=== PATIENT | male | born 1935 | race Hispanic/Latino ===

== ENCOUNTER 2017-09-20 10:14 | Outpatient (CLI) | payer MEDICARE, OTHER ==
--- NOTE | 2017-09-20 11:48 | SJPRAD ---
PA AND LATERAL CHEST: Date: 09/20/17 HISTORY: Cough x1 month. FINDINGS: Heart size within normal limits. There are atherosclerotic changes of the aorta. There are some chron ic appearing lung changes seen. Slightly more prominent interstitial change in the left base. I canno t totally exclude the possibility of some minimal early infiltrate in this region. IMPRESSION: Slightly increased retrocardiac parenchymal change. I suspect this is on the basis of chronic change, but some minimal early infiltrate is not excluded in the retrocardiac region. POS: LEONCIO
== END 2017-09-20 10:15 | disposition home or self-care (01) ==
LOC: MWLC RAD 10:14
PROVIDERS: ATTEND Family Medicine
DX: J41.1 Mucopurulent chronic bronchitis (principal); M05.79 Rheumatoid arthritis with rheumatoid factor of multiple sites without organ or systems involvement

== ENCOUNTER 2017-10-29 12:44 | Outpatient (CLI) | payer MEDICARE, OTHER ==
--- NOTE | 2017-10-29 14:35 | RAD ---
TWO VIEWS CHEST: Date: 10-29-17 Comparison: 09-20-17 History: Dyspnea. FINDINGS: Multilevel degenerative change noted within the thoracic spine. There is increased linear interstitia l density in the perihilar regions in both lung bases, stable. There is no pneumothorax or pleural fl uid and no focal consolidation or alveolar edema. Coronary arterial calcification and/or stent materi al overlies the cardiac silhouette on the left, stable. IMPRESSION: Stable appearance of the chest as above. POS: LEONCIO
== END 2017-10-29 12:45 | disposition home or self-care (01) ==
LOC: RAD 12:44
PROVIDERS: ATTEND Internal Medicine
DX: R06.00 Dyspnea, unspecified (principal); M05.79 Rheumatoid arthritis with rheumatoid factor of multiple sites without organ or systems involvement
CPT/HCPCS: 71046

== ENCOUNTER 2017-11-26 13:41 | Outpatient (CLI) | payer MEDICARE, OTHER ==
--- NOTE | 2017-11-28 10:38 | PFT ---
PATIENT HISTORY: HEIGHT: 73 WEIGHT:161 SMOKER: NO QUIT 10 YRS AGO HOW LON YEARS PACKS PER DAY:1 PRODUCTIVE COUGH: LUNG DISEASE: PHYSICIAN INTERPRETATION FINAL REPORT: Fish Icer comments: patient had good effort, The DLCO data did not save and was written by hand. FVC 2.57 (62%), FEV1 1.70 (64%), FEV1/FVC 0.66. TLC 4.67 (68%), FRC 3.07 (78%), RV 2.00 (74%). Diffusion 24.62 (105%). There is a reduction in the FEV1 and the FVC. It has an obstructive profile, based on the FEV1 to FVC ratio. There is no significant improvement after administration of bronchodilator. If anything, things get a little worse. The total lung capacity and residual volume are both mildly impaired. Diffusion capacity is normal. 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 Gas exchange is preserved. No priors for comparison. Fish Icer: RYANN Community Relations Coordinator: RYANN MORENO
== END 2017-11-26 13:42 | disposition home or self-care (01) ==
LOC: CP 13:41
PROVIDERS: ATTEND Internal Medicine
DX: J44.9 Chronic obstructive pulmonary disease, unspecified (principal); J84.9 Interstitial pulmonary disease, unspecified
CPT/HCPCS: 94060; 94727; 94729

== ENCOUNTER 2018-03-07 08:57 | Outpatient (CLI) | payer MEDICARE, OTHER | END 2018-03-07 08:58 | disposition home or self-care (01) | LOC: BICRAD 08:57 | PROVIDERS: ATTEND Internal Medicine Rheumatology | DX: M17.0 Bilateral primary osteoarthritis of knee (principal); M05.79 Rheumatoid arthritis with rheumatoid factor of multiple sites without organ or systems involvement ==

== ENCOUNTER 2018-05-07 14:57 | Outpatient (CLI) | payer MEDICARE, OTHER | END 2018-05-07 14:58 | disposition home or self-care (01) | LOC: BICRAD 14:57 | PROVIDERS: ATTEND Internal Medicine Rheumatology | DX: M05.79 Rheumatoid arthritis with rheumatoid factor of multiple sites without organ or systems involvement (principal); R76.12 Nonspecific reaction to cell mediated immunity measurement of gamma interferon antigen response without active tuberculosis | CPT/HCPCS: 71046 ==

== ENCOUNTER 2018-08-12 12:31 | Outpatient (CLI) | payer MEDICARE, OTHER ==
--- NOTE | 2018-08-14 16:57 | PFT ---
PATIENT HISTORY: HEIGHT: 72 IN WEIGHT: 161 SMOKER: NO HOW LON YRS PACKS PER DAY: 1 PRODUCTIVE COUGH: LUNG DISEASE: PHYSICIAN INTERPRETATION FINAL REPORT: FEV1 is 1.85 liters prior to bronchodilators. After bronchodilators 2.16 liters best FVC is 3.02. Mid flows are reduced and improves with bronchodilators. Total lung capacity is normal RV/TLC ratio is normal. Diffusion is mildly reduced, but corrects for lung volumes. IMPRESSION: Overall, this is a moderate obstructive defect that improves with bronchodilators. Supervising Editor Trailer: Brickmason Helper: RYANN MORENO
== END 2018-08-12 12:32 | disposition home or self-care (01) ==
LOC: CP 12:31
PROVIDERS: ATTEND Internal Medicine
DX: J84.9 Interstitial pulmonary disease, unspecified (principal); J44.9 Chronic obstructive pulmonary disease, unspecified; M05.79 Rheumatoid arthritis with rheumatoid factor of multiple sites without organ or systems involvement
CPT/HCPCS: 36415; 80053; 85025; 85652; 86140; 94060; 94727; 94729

== ENCOUNTER 2019-03-17 11:34 | Outpatient (CLI) | payer MEDICARE, OTHER ==
--- NOTE | 2019-03-17 11:46 | SJPRAD ---
CHEST PA LAT ROUTINE HISTORY: Cough COMPARISON: 09/20/2017 FINDINGS: The heart size is normal. The lungs are well expanded without focal areas of consolidation, pneumothorax or pleural effusions. Mild chronic changes are again seen. There are degenerative changes in the spine. The aorta is tortuous. IMPRESSION: No radiographic evidence of acute cardiopulmonary process.
== END 2019-03-17 11:35 | disposition home or self-care (01) ==
LOC: MWLC RAD 11:34
PROVIDERS: ATTEND Family Medicine
DX: R05 Cough (principal)

== ENCOUNTER 2019-03-25 10:20 | Outpatient (CLI) | payer MEDICARE, OTHER ==
--- NOTE | 2019-03-25 10:31 | SJPRAD ---
CHEST PA LAT ROUTINE HISTORY: Cough and congestion COMPARISON: 03/17/2019 study. FINDINGS: Heart size is borderline in size. The aorta is tortuous. There are chronic lung changes see n. There is been development of bibasilar lung changes slightly more confluent in the right base but still most likely atelectasis. IMPRESSION: Borderline heart size with bibasilar atelectasis.
== END 2019-03-25 10:21 | disposition home or self-care (01) ==
LOC: MWLC RAD 10:20
PROVIDERS: ATTEND Family Medicine
DX: R05 Cough (principal); J98.11 Atelectasis

== ENCOUNTER 2019-06-05 09:21 | Outpatient (CLI) | payer MEDICARE, OTHER ==
--- NOTE | 2019-06-05 11:20 | RAD ---
PA AND LATERAL CHEST: Date: 06/05/19 INDICATION: Nonspecific reaction to gamma interferon. COMPARISON: Prior exam dated 03/25/19. FINDINGS: Chronic lung changes and mild cardiomegaly are stable. No pleural effusion or pneumothorax is evident . No acute osseous abnormality is evident. IMPRESSION: No acute cardiopulmonary abnormality. POS: OFF
--- NOTE | 2019-06-05 11:38 | BD ---
DEXA BONE DENSITY STUDY: Date: 06/05/19 HISTORY: Postmenopausal. FINDINGS: Lumbar Spine: BMD (g/cm2) L1 1.072 T-Score: +0.0 L2 1.080 T-Score: -0.1 L3 1.193 T-Score: +0.8 L4 1.197 T-Score: +1.0 Total 1.138 T-Score: +0.4 Right Femoral Neck: 0.760 T-Score: -1.3 Total Femur: 0.792 T-Score: -1.6 IMPRESSION: 1. Osteopenia of the right hip. 2. Normal bone mineral density of the lumbar spine. 3. 10 year fracture risk for major osteoporotic fracture is 7.8% and for hip fracture is 2.6%. These fracture probabilities are calculated for an untreated patient. POS: TPC
== END 2019-06-05 09:22 | disposition home or self-care (01) ==
LOC: BICRAD 09:21
PROVIDERS: ATTEND Internal Medicine Rheumatology
DX: M81.0 Age-related osteoporosis without current pathological fracture (principal); R76.12 Nonspecific reaction to cell mediated immunity measurement of gamma interferon antigen response without active tuberculosis; M05.79 Rheumatoid arthritis with rheumatoid factor of multiple sites without organ or systems involvement; M85.89 Other specified disorders of bone density and structure, multiple sites
CPT/HCPCS: 71046; 77080

== ENCOUNTER 2019-07-08 09:49 | Outpatient (CLI) | payer MEDICARE, OTHER ==
--- NOTE | 2019-07-08 11:19 | ULT ---
ABDOMINAL AORTIC ULTRASOUND: HISTORY: Abdominal aortic aneurysm screening. TECHNIQUE: Real-time imaging of the abdominal aorta was performed. FINDINGS: The proximal aorta measured 2.1 cm. The mid aorta measured 1.8 cm and distally 1.6 cm. The iliac anay xu do not appear dilated. IMPRESSION: No evidence of aortic aneurysm. POS: TPC
== END 2019-07-08 09:50 | disposition home or self-care (01) ==
LOC: BICULT 09:49
PROVIDERS: ATTEND Family Medicine
DX: Z13.6 Encounter for screening for cardiovascular disorders (principal)
CPT/HCPCS: 76775

== ENCOUNTER 2019-12-07 11:48 | Outpatient (CLI) | payer MEDICARE, OTHER ==
--- NOTE | 2019-12-07 12:15 | RAD ---
XR Chest Pa Lat @ POB HISTORY: Dyspnea COMPARISON: 06/05/2019 FINDINGS: Chronic changes and mild cardiomegaly are again seen. The aorta is tortuous.. The lungs are well expanded without focal areas of consolidation, pneumothorax or pleural effusions. There are degenerative changes in the spine. IMPRESSION: No radiographic evidence of acute cardiopulmonary process.
== END 2019-12-07 11:49 | disposition home or self-care (01) ==
LOC: RAD 11:48
PROVIDERS: ATTEND Internal Medicine
DX: R06.00 Dyspnea, unspecified (principal)
CPT/HCPCS: 71046

== ENCOUNTER 2020-04-18 10:26 | Outpatient (CLI) | payer MEDICARE, OTHER ==
--- NOTE | 2020-04-18 13:17 | CT ---
LOW DOSE CT SCAN OF CHEST WITHOUT IV CONTRAST FOR LUNG CANCER SCREENING: Date: 04/18/2020 HISTORY: Patient smoked a pack a day for 65 years and quit 13 years ago. Cigarette nicotine dependence in elisabeth ssion. COMPARISON: None. FINDINGS: There are multiple scattered solid well-circumscribed lung nodules in the lung parenchyma bilaterally measuring up to 6.0 mm. Subpleural interstitial thickening is seen in the lung bases with mild atele ctatic changes. No pleural or pericardial effusions are seen. There are coronary artery calcifications. No aneurysmal dilatation of the thoracic aorta is seen. Upper abdominal tomograms demonstrate changes of cholecyst ectomy and intrabiliary air. IMPRESSION: Lung-RADS 3. RECOMMENDATION: Six month follow-up LDCT of chest is recommended. POS: LEONCIO
== END 2020-04-18 10:27 | disposition home or self-care (01) ==
LOC: BICCT 10:26
PROVIDERS: ATTEND Family Medicine
DX: Z12.2 Encounter for screening for malignant neoplasm of respiratory organs (principal); Z87.891 Personal history of nicotine dependence
CPT/HCPCS: G0297

== ENCOUNTER 2020-07-04 12:07 | Outpatient (CLI) | payer MEDICARE, OTHER ==
--- NOTE | 2020-07-04 12:49 | RAD ---
XR Chest Pa Lat STANDARD HISTORY: COPD COMPARISON: 12/07/2019 FINDINGS: Chronic changes in the myocardial megaly are again seen. The aorta is tortuous. The lungs a re well expanded without focal areas of consolidation, pneumothorax or pleural effusions. There are degenerative changes in the spine. IMPRESSION: No radiographic evidence of acute cardiopulmonary process.
== END 2020-07-04 12:08 | disposition home or self-care (01) ==
LOC: BICRAD 12:07
PROVIDERS: ATTEND Family Medicine
DX: J44.9 Chronic obstructive pulmonary disease, unspecified (principal)
CPT/HCPCS: 71046

== ENCOUNTER 2020-12-01 09:18 | Outpatient (CLI) | payer MEDICARE, OTHER | END 2020-12-01 09:19 | disposition home or self-care (01) | LOC: BICCT 09:18 | PROVIDERS: ATTEND Family Medicine | DX: Z12.2 Encounter for screening for malignant neoplasm of respiratory organs (principal); F17.210 Nicotine dependence, cigarettes, uncomplicated; M54.2 Cervicalgia; M25.511 Pain in right shoulder; M19.012 Primary osteoarthritis, left shoulder; M50.80 Other cervical disc disorders, unspecified cervical region; R91.8 Other nonspecific abnormal finding of lung field | CPT/HCPCS: 71271; 72040; 73030; 80053; 80061; 82306; 85025; G0103; 36415 ==

== ENCOUNTER 2020-12-16 10:04 | Outpatient (CLI) | payer MEDICARE, OTHER | END 2020-12-16 10:05 | disposition home or self-care (01) | LOC: TBSIIMAG 10:04 | PROVIDERS: ATTEND Family Medicine | DX: M79.2 Neuralgia and neuritis, unspecified (principal); M48.02 Spinal stenosis, cervical region; M47.812 Spondylosis without myelopathy or radiculopathy, cervical region | CPT/HCPCS: 72141 ==

== ENCOUNTER 2021-04-10 12:19 | Outpatient (CLI) | payer MEDICARE, OTHER, MEDICAID | END 2021-04-10 12:20 | disposition home or self-care (01) | LOC: BICULT 12:19 | PROVIDERS: ATTEND Family Medicine | DX: E05.00 Thyrotoxicosis with diffuse goiter without thyrotoxic crisis or storm (principal) | CPT/HCPCS: 76536 ==

== ENCOUNTER 2021-06-11 17:36 | Emergency (ER) | payer MEDICARE, OTHER, MEDICAID ==
[2021-06-11] MEDS ORDERED: HYDROcodone/Acetaminophen 5/325 mg Tablet ONE (20:51)
[2021-06-11] MEDS ORDERED: Ibuprofen 800 MG TAB ONE (20:58)
== END 2021-06-11 21:18 | disposition home or self-care (01) ==
LOC: ERS 17:36
DX: S83.92XA Sprain of unspecified site of left knee, initial encounter (principal); W22.8XXA Striking against or struck by other objects, initial encounter; M17.0 Bilateral primary osteoarthritis of knee; E78.5 Hyperlipidemia, unspecified; I10 Essential (primary) hypertension
CPT/HCPCS: 72170

== ENCOUNTER 2021-07-13 15:02 | Outpatient (CLI) | payer MEDICARE, MEDICAID | END 2021-07-13 15:03 | disposition home or self-care (01) | LOC: BICMAMMO 15:02 | PROVIDERS: ATTEND Internal Medicine Rheumatology | DX: M81.0 Age-related osteoporosis without current pathological fracture (principal); M85.851 Other specified disorders of bone density and structure, right thigh; M85.852 Other specified disorders of bone density and structure, left thigh | CPT/HCPCS: 77080 ==

== ENCOUNTER 2021-08-09 11:29 | Outpatient (CLI) | payer MEDICARE, OTHER, MEDICAID | END 2021-08-09 11:30 | disposition home or self-care (01) | LOC: BICRAD 11:29 | PROVIDERS: ATTEND Internal Medicine Rheumatology | DX: R76.12 Nonspecific reaction to cell mediated immunity measurement of gamma interferon antigen response without active tuberculosis (principal); R91.8 Other nonspecific abnormal finding of lung field | CPT/HCPCS: 71046 ==

== ENCOUNTER 2021-11-21 09:23 | Inpatient (IN) | payer MEDICARE, MEDICAID, OTHER ==
[2021-11-21 10:21] LABS: #Lymphocytes 1.2 thou/uL (1.20-3.40); #Monocytes 0.9 thou/uL (0.11-0.59); #Neutrophils 15.6 thou/uL (1.40-6.50); %Basophils 0.1 % (0.0-1.0); %Eosinophils 0.2 % (0.0-10.0); %Lymphocytes 6.8 % (21.0-51.0); %Monocytes 4.8 % (0.0-10.0); Hemoglobin 14.2 g/dL (14.0-18.0); Mean Corpuscular HGB CONC 32.6 g/dL (32.0-36.0); Mean Corpuscular Hemoglobin 31.6 pg (27.0-31.0); Mean Platelet Volume 7.2 fL (7.4-10.4); Platelet Count 209 thou/uL (130-400); Red Blood Cell (RBC) Count 4.51 mill/uL (4.70-6.10); White Blood Cell (WBC) Count 17.7 thou/uL (4.8-10.8)
[2021-11-21 10:40] LABS: ALT (SGPT) 37 U/L (8-55); AST (SGOT) 79 U/L (5-34); Albumin 3.6 g/dL (3.4-4.8); Alkaline Phosphatase 75 U/L (40-110); Anion Gap 14 mmol/L (10-20); BUN (Urea Nitrogen) 33 mg/dL (8.4-25.7); Bilirubin, Total 2.8 mg/dL (0.2-1.2); Calc. Creatinine Clearance 0 mL/min (70-130); Calcium 9.3 mg/dL (7.8-10.44); Carbon Dioxide 23 mmol/L (23-31); Chloride 108 mmol/L (98-107); Globulin 2.4 g/dL (2.4-3.5); Glucose 111 mg/dL (83-110); Potassium 3.4 mmol/L (3.5-5.1); Sodium 142 mmol/L (136-145)
[2021-11-21] MEDS ORDERED: Aspirin Chewable 81 MG TAB ONE (11:35)
[2021-11-21 11:58] LABS: CKMB 29.1 ng/mL (0-6.6)
[2021-11-21 12:35] LABS: Bacteria/HPF None Seen HPF (None Seen); Bilirubin Negative (Negative); Blood, Urine 3+ (Negative); Clarity Clear (Clear); Glucose, Urine (Dipstick) Normal (Negative); Ketone, Urine Negative (Negative); Leukocyte Negative Leu/uL (Negative); Nitrite Negative (Negative); Protein, Urine (Dipstick) 50 mg/dL (Neg-Trace); RBC/HPF 0-3 HPF (0-3); Specific Gravity, Urine 1.029 (1.002-1.036); Squamous Epithelial 0-3 HPF (0-3); Urobilinogen 6 mg/dL (Less than 2); WBC/HPF 0-3 HPF (0-3); pH, Urine 6.5 (5.0-9.0)
[2021-11-21] MEDS ORDERED: Nitroglycerin 0.4 MG TAB (25 Tab Bottle) SL PRN (13:09)
[2021-11-21] MEDS ORDERED: Acetaminophen 325 MG TAB PO PRN (13:14)
[2021-11-21] MEDS ORDERED: Ondansetron ODT 4 MG TAB PO PRN (13:14)
[2021-11-21] MEDS ORDERED: Potassium Chloride 20 MEQ TAB PO SCH (13:30)
[2021-11-21] MEDS ORDERED: Potassium Chloride 20 MEQ TAB ONE (14:01)
[2021-11-21 15:34] LABS: Troponin I 0.037 ng/mL (< 0.028)
[2021-11-21 15:40] LABS: Magnesium 1.8 mg/dL (1.6-2.6)
[2021-11-21] MEDS ORDERED: Magnesium 2 GM/50 ML(in water) 2 GM in Premix Bag 1 BAG IVPB SCH (16:45)
[2021-11-21 17:34] LABS: SARS-CoV-2 NAA Rapid Test Not Detected (NotDetected)
[2021-11-21 18:07] LABS: Troponin I 0.034 ng/mL (< 0.028)
[2021-11-21 18:26] VITALS: BMI 22.1
[2021-11-22 04:48] LABS: #Eosinphils 0.1 thou/uL (0.0-0.7); #Lymphocytes 1.4 thou/uL (1.20-3.40); #Monocytes 0.6 thou/uL (0.11-0.59); #Neutrophils 6.1 thou/uL (1.40-6.50); %Basophils 0.5 % (0.0-1.0); %Eosinophils 0.9 % (0.0-10.0); %Lymphocytes 17.3 % (21.0-51.0); %Neutrophils 74.4 % (42.0-75.0); Hemoglobin 13.2 g/dL (14.0-18.0); Mean Corpuscular HGB CONC 33.2 g/dL (32.0-36.0); Mean Corpuscular Hemoglobin 32.5 pg (27.0-31.0); Mean Corpuscular Volume 97.9 fL (78.0-98.0); Mean Platelet Volume 6.8 fL (7.4-10.4); Platelet Count 182 thou/uL (130-400); RBC Distribution Width 13.1 % (11.5-14.5); Red Blood Cell (RBC) Count 4.05 mill/uL (4.70-6.10); White Blood Cell (WBC) Count 8.1 thou/uL (4.8-10.8)
[2021-11-22 05:12] LABS: Anion Gap 11 mmol/L (10-20); BUN (Urea Nitrogen) 29 mg/dL (8.4-25.7); Calc. Creatinine Clearance 87 mL/min (70-130); Calcium 8.4 mg/dL (7.8-10.44); Carbon Dioxide 24 mmol/L (23-31); Cardiac Risk 2.8 (Less than 4.5); Chloride 109 mmol/L (98-107); Cholesterol 112 mg/dl (< 200 Desired); Glucose 91 mg/dL (83-110); HDL Cholesterol 40 mg/dL (>60 Neg Risk); LDL Cholesterol, Calculated 60 mg/dL; Potassium 3.6 mmol/L (3.5-5.1); Sodium 140 mmol/L (136-145); Triglycerides 58 mg/dL (Less than 150)
[2021-11-22] MEDS ORDERED: Regadenoson 0.4 MG/5 ML SYRINGE ONE (12:09)
[2021-11-22] MEDS ORDERED: Non-Formulary Item 1 EACH (Risedronate Sodium [Risedronate Sodium] 35 MG Tablet) PO SCH (14:15)
[2021-11-22] MEDS ORDERED: BUPRENORPHINE 5 MCG TOP SCH (14:15)
[2021-11-22] MEDS: Ferrous Sulfate 325 MG TAB PO SCH ×2 (15:48→20:19)
[2021-11-22] MEDS ORDERED: Dronedarone HCl 400 MG TAB PO SCH (20:00)
[2021-11-22] MEDS: Donepezil HCl 5 MG TAB PO SCH (20:19)
[2021-11-22] MEDS: Rosuvastatin 20 MG TAB PO SCH (20:19)
[2021-11-22] MEDS: Enoxaparin Sodium 80 MG/0.8 ML SYRINGE SC SCH (20:19)
[2021-11-22] MEDS: traMADol HCl 50 MG TAB PO SCH (20:19)
[2021-11-22] MEDS ORDERED: Apixaban 5 MG TAB PO SCH (21:00)
[2021-11-23] MEDS ORDERED: BUPRENORPHINE 5 MCG TOP SCH (02:30)
[2021-11-23] MEDS: predniSONE 1 MG TAB PO SCH (09:30)
[2021-11-23] MEDS: Losartan 25 MG TAB PO SCH (09:30)
[2021-11-23] MEDS: Dronedarone HCl 400 MG TAB PO SCH ×2 (09:31→16:20)
[2021-11-23] MEDS: Ferrous Sulfate 325 MG TAB PO SCH ×3 (09:31→21:04)
[2021-11-23] MEDS: traMADol HCl 50 MG TAB PO SCH ×2 (09:31→21:04)
[2021-11-23] MEDS: Fish Oil 1,000 MG CAP PO SCH (09:31)
[2021-11-23] MEDS: Aspirin 81 mg Enteric Coated Tablet PO SCH (09:31)
[2021-11-23] MEDS: Enoxaparin Sodium 80 MG/0.8 ML SYRINGE SC SCH ×2 (09:32→21:04)
[2021-11-23] MEDS: Polyethylene Glycol OPTH DROP 15 ML BOT EA EYE SCH (09:34)
[2021-11-23] MEDS: Rosuvastatin 20 MG TAB PO SCH (21:04)
[2021-11-23] MEDS: Donepezil HCl 5 MG TAB PO SCH (21:04)
[2021-11-24] MEDS: traMADol HCl 50 MG TAB PO SCH (09:09)
[2021-11-24] MEDS: Ferrous Sulfate 325 MG TAB PO SCH (09:10)
[2021-11-24] MEDS: Losartan 25 MG TAB PO SCH (09:10)
[2021-11-24] MEDS: Aspirin 81 mg Enteric Coated Tablet PO SCH (09:10)
[2021-11-24] MEDS: Polyethylene Glycol OPTH DROP 15 ML BOT EA EYE SCH (09:10)
[2021-11-24] MEDS: Fish Oil 1,000 MG CAP PO SCH (09:10)
[2021-11-24] MEDS: predniSONE 1 MG TAB PO SCH (09:10)
[2021-11-24] MEDS: Dronedarone HCl 400 MG TAB PO SCH (09:20)
[2021-11-24] MEDS ORDERED: Apixaban 2.5 MG TAB PO SCH (10:00)
[2021-11-24] MEDS ORDERED: Apixaban 5 MG TAB PO SCH ×2 (10:15→21:00)
[2021-11-24 11:26] VITALS: BP 120/68; TEMP 97.9
[2021-11-25] MEDS ORDERED: Ergocalciferol 1.25 MG(50,000 UNITS) CAP PO SCH (09:00)
== END 2021-11-24 14:10 | disposition home or self-care (01) | DRG 310 ==
LOC: ERS 09:23 → ERHOLD 12:09 → 2NO 17:26 → OBSVTOIN 11-22 15:25
PROVIDERS: ADMIT Internal Medicine; ATTEND Internal Medicine
DX: I48.0 Paroxysmal atrial fibrillation (principal); R07.89 Other chest pain; Z20.822 Contact with and (suspected) exposure to COVID-19; R00.1 Bradycardia, unspecified; I12.9 Hypertensive chronic kidney disease with stage 1 through stage 4 chronic kidney disease, or unspecified chronic kidney disease; N18.30 Chronic kidney disease, stage 3 unspecified; M06.9 Rheumatoid arthritis, unspecified; I25.10 Atherosclerotic heart disease of native coronary artery without angina pectoris; E78.5 Hyperlipidemia, unspecified; K21.9 Gastro-esophageal reflux disease without esophagitis; G30.9 Alzheimer's disease, unspecified; F02.80 Dementia in other diseases classified elsewhere, unspecified severity, without behavioral disturbance, psychotic disturbance, mood disturbance, and anxiety; G83.11 Monoplegia of lower limb affecting right dominant side; E87.6 Hypokalemia; M25.521 Pain in right elbow; D72.829 Elevated white blood cell count, unspecified; I08.3 Combined rheumatic disorders of mitral, aortic and tricuspid valves; E78.00 Pure hypercholesterolemia, unspecified; K80.20 Calculus of gallbladder without cholecystitis without obstruction; B91 Sequelae of poliomyelitis; Z95.5 Presence of coronary angioplasty implant and graft; Z79.899 Other long term (current) drug therapy; Z79.82 Long term (current) use of aspirin; Z79.01 Long term (current) use of anticoagulants; Z79.52 Long term (current) use of systemic steroids; Z98.890 Other specified postprocedural states; Z91.81 History of falling
CPT/HCPCS: 36415; 70450; 71045; 72125; 78452; 80048; 80053; 80061; 81003; 81015; 82550; 82553; 83735; 83880; 84443; 84484; 85025; 93005; 93017; 93306; 94760; 96374; A9500; G0378; J1650; J2785; J3475; J7512; U0002

== ENCOUNTER 2022-05-27 15:00 | Inpatient (IN) | payer MEDICARE, MEDICAID ==
[2022-05-27 15:37] LABS: #Lymphocytes 1.5 thou/uL (1.20-3.40); #Monocytes 0.6 thou/uL (0.11-0.59); %Basophils 0.2 % (0.0-1.0); %Eosinophils 0.2 % (0.0-10.0); %Lymphocytes 18.7 % (21.0-51.0); %Monocytes 7.4 % (0.0-10.0); %Neutrophils 73.5 % (42.0-75.0); Hemoglobin 15.6 g/dL (14.0-18.0); Mean Corpuscular HGB CONC 33.4 g/dL (32.0-36.0); Mean Corpuscular Hemoglobin 31.1 pg (27.0-31.0); Mean Corpuscular Volume 93.2 fL (78.0-98.0); Mean Platelet Volume 7.6 fL (7.4-10.4); Platelet Count 144 thou/uL (130-400); RBC Distribution Width 14.4 % (11.5-14.5); Red Blood Cell (RBC) Count 5.01 mill/uL (4.70-6.10); White Blood Cell (WBC) Count 8.2 thou/uL (4.8-10.8)
[2022-05-27] MEDS ORDERED: Iopamidol-370 76% 500 ML 1 ML ONE (15:44)
[2022-05-27 15:49] LABS: Actual Bicarbonate (HCO3v) 22 mEq/L (22-28); Base Excess -2.4 mEq/L (-2.0 to +3.0); Calcium, Ionized (venous) 1.03 mmol/L (1.16-1.32); Chloride (VBG) 103 mmol/L (98-106); Hemoglobin (Hb) 14.9 g/dL (12.6-17.4); Potassium (VBG) 4.13 mmol/L (3.70-5.30); Sodium 134.3 mmol/L (133-146)
[2022-05-27] MEDS ORDERED: Acetaminophen 650 MG Suppository ONE (15:55)
[2022-05-27] MEDS ORDERED: Cefepime 2 GM VIAL ONE (15:57)
[2022-05-27 16:00] LABS: ALT (SGPT) 434 U/L (8-55); AST (SGOT) 903 U/L (5-34); Albumin 4.3 g/dL (3.4-4.8); Alkaline Phosphatase 375 U/L (40-110); Anion Gap 16 mmol/L (10-20); BUN (Urea Nitrogen) 32 mg/dL (8.4-25.7); Bilirubin, Total 2.2 mg/dL (0.2-1.2); Calc. Creatinine Clearance 0 mL/min (70-130); Calcium 9.4 mg/dL (7.8-10.44); Carbon Dioxide 24 mmol/L (23-31); Chloride 100 mmol/L (98-107); Estimated GFR 75; Globulin 3.1 g/dL (2.4-3.5); Glucose 87 mg/dL (83-110); Lipase 24 U/L (8-78); Potassium 4.2 mmol/L (3.5-5.1); Protein, Total 7.4 g/dL (5.8-8.1); Sodium 136 mmol/L (136-145)
[2022-05-27] MEDS ORDERED: Vancomycin 1 GM/200 ML BAG ONE (16:20)
[2022-05-27 16:44] LABS: Bilirubin Negative (Negative); Blood, Urine Negative (Negative); Clarity Clear (Clear); Glucose, Urine (Dipstick) Normal (Negative); Ketone, Urine Negative (Negative); Leukocyte Negative Leu/uL (Negative); Nitrite Negative (Negative); Protein, Urine (Dipstick) 10 mg/dL (Neg-Trace); Specific Gravity, Urine 1.027 (1.002-1.036); Urobilinogen 3 mg/dL (Less than 2); pH, Urine 6.5 (5.0-9.0)
[2022-05-27 18:16] LABS: SARS-CoV-2 NAA Rapid Test DETECTED (NotDetected)
[2022-05-27] MEDS ORDERED: metroNIDAZOLE 500 MG/100 ML BAG ONE (18:57)
[2022-05-27] MEDS ORDERED: Bisacodyl 5 MG TAB PO PRN (19:48)
[2022-05-27] MEDS ORDERED: Ondansetron PF 4 MG/2 ML Vial IVP PRN (19:48)
[2022-05-27] MEDS ORDERED: Acetaminophen 325 MG TAB PO PRN (19:48)
[2022-05-27] MEDS ORDERED: Acetaminophen 650 MG Suppository PR PRN (19:48)
[2022-05-27] MEDS ORDERED: Albuterol 200 PUFF (6.7GM INHALER) INH PRN (19:48)
[2022-05-27] MEDS ORDERED: Guaifenesin DM 100-10/5 ML UDCUP PO PRN (19:48)
[2022-05-27] MEDS ORDERED: Morphine 2 MG/ML VIAL SLOW IVP PRN (19:54)
[2022-05-27] MEDS ORDERED: Labetalol HCl 100 MG/20 ML VIAL SLOW IVP PRN (19:54)
[2022-05-27] MEDS ORDERED: Lactated Ringer's 500 ML IV SCH (21:15)
[2022-05-27 22:14] VITALS: BMI 21.7
[2022-05-27] MEDS: Dextrose 5 % And 0.9 % NaCl 1,000 ML IV SCH (22:42)
[2022-05-27] MEDS: Enoxaparin Sodium 60 MG/0.6 ML SYRINGE SC SCH (22:42)
[2022-05-27] MEDS: Famotidine/PF 20 mg/2ml Vial SLOW IVP SCH (22:43)
[2022-05-28] MEDS ORDERED: Cefepime 1 GM in Sodium Chloride 0.9% 100 ML IVPB SCH (03:00)
[2022-05-28 04:11] LABS: #Monocytes 0.8 thou/uL (0.11-0.59); %Basophils 0.5 % (0.0-1.0); %Eosinophils 0.1 % (0.0-10.0); %Lymphocytes 16.8 % (21.0-51.0); %Monocytes 13.3 % (0.0-10.0); %Neutrophils 69.3 % (42.0-75.0); Hemoglobin 12.7 g/dL (14.0-18.0); Mean Corpuscular HGB CONC 33.5 g/dL (32.0-36.0); Mean Corpuscular Hemoglobin 31.3 pg (27.0-31.0); Mean Corpuscular Volume 93.3 fL (78.0-98.0); Mean Platelet Volume 7.6 fL (7.4-10.4); Platelet Count 125 thou/uL (130-400); RBC Distribution Width 14.2 % (11.5-14.5); Red Blood Cell (RBC) Count 4.07 mill/uL (4.70-6.10); White Blood Cell (WBC) Count 5.8 thou/uL (4.8-10.8)
[2022-05-28 04:29] LABS: ALT (SGPT) 401 U/L (8-55); AST (SGOT) 454 U/L (5-34); Albumin 3.1 g/dL (3.4-4.8); Alkaline Phosphatase 307 U/L (40-110); Anion Gap 13 mmol/L (10-20); BUN (Urea Nitrogen) 19 mg/dL (8.4-25.7); Bilirubin, Total 1.2 mg/dL (0.2-1.2); Calc. Creatinine Clearance 73 mL/min (70-130); Carbon Dioxide 23 mmol/L (23-31); Chloride 104 mmol/L (98-107); Estimated GFR 90; Glucose 76 mg/dL (83-110); Potassium 3.7 mmol/L (3.5-5.1); Protein, Total 5.1 g/dL (5.8-8.1); Sodium 136 mmol/L (136-145)
[2022-05-28] MEDS: Vancomycin 1 GM in Premix Bag 1 BAG IVPB SCH ×2 (05:43→14:34)
[2022-05-28] MEDS: Enoxaparin Sodium 60 MG/0.6 ML SYRINGE SC SCH ×2 (08:15→20:23)
[2022-05-28] MEDS: Ascorbic Acid 500 mg Chewable Tablet PO SCH (08:15)
[2022-05-28] MEDS: Zinc Sulfate 220 MG CAP PO SCH (08:15)
[2022-05-28] MEDS: Dronedarone HCl 400 MG TAB PO SCH ×2 (08:15→17:04)
[2022-05-28] MEDS: Famotidine/PF 20 mg/2ml Vial SLOW IVP SCH ×2 (08:31→22:47)
[2022-05-28] MEDS: Pantoprazole 40 MG VIAL IVP SCH (08:31)
[2022-05-28] MEDS: Dexamethasone 4 mg/ml Vial SLOW IVP SCH (08:31)
[2022-05-28] MEDS ORDERED: SUGAMMADEX SODIUM 200 MG/2 ML VIAL ONE (10:05)
[2022-05-28] MEDS ORDERED: fentaNYL Citrate/PF 100 MCG/2 ML SYRINGE ONE (10:05)
[2022-05-28] MEDS ORDERED: Iopamidol 0 ML ONE (10:05)
[2022-05-28] MEDS ORDERED: Indomethacin 50 MG SUPP ONE ×2 (10:06→10:34)
[2022-05-28] MEDS ORDERED: Lidocaine 1% MPF 2 ML VIAL ONE (10:31)
[2022-05-28] MEDS ORDERED: Dexamethasone 20 MG/5 ML VIAL ONE (10:31)
[2022-05-28] MEDS ORDERED: PROPOFOL 200 MG/20 ML VIAL ONE (10:31)
[2022-05-28] MEDS ORDERED: Rocuronium Bromide 10 MG/ML (10ML VIAL) ONE (10:31)
[2022-05-28] MEDS ORDERED: ePHEDrine 50 MG/ML VIAL ONE (10:31)
[2022-05-28] MEDS ORDERED: Esmolol 100 MG/10 ML VIAL ONE (10:31)
[2022-05-28] MEDS ORDERED: Ondansetron PF 4 MG/2 ML Vial ONE (10:31)
[2022-05-28] MEDS ORDERED: Iopamidol 15 ML ONE (10:35)
[2022-05-28] MEDS ORDERED: Iopamidol 45 ML ONE (10:36)
[2022-05-28] MEDS ORDERED: Labetalol HCl 100 MG/20 ML VIAL ONE (11:47)
[2022-05-28] MEDS ORDERED: Promethazine HCl 25 MG/ML VIAL IVPB PRN (11:51)
[2022-05-28] MEDS ORDERED: Meperidine HCl/PF 25 MG/ML VIAL SLOW IVP PRN (11:51)
[2022-05-28] MEDS: Cefepime 2 GM in Sodium Chloride 0.9% 100 ML IVPB SCH (14:34)
[2022-05-28] MEDS: Dextrose 5 % And 0.9 % NaCl 1,000 ML IV SCH (17:04)
[2022-05-28] MEDS ORDERED: OLANZapine 10 MG VIAL IM SCH (21:00)
[2022-05-28] MEDS ORDERED: Sterile Water 10 ML VIAL FS SCH (21:00)
[2022-05-29] MEDS: Cefepime 2 GM in Sodium Chloride 0.9% 100 ML IVPB SCH ×2 (03:15→15:54)
[2022-05-29 04:00] LABS: #Eosinphils 0.1 thou/uL (0.0-0.7); #Monocytes 0.4 thou/uL (0.11-0.59); #Neutrophils 3.8 thou/uL (1.40-6.50); %Eosinophils 1.2 % (0.0-10.0); %Lymphocytes 18.9 % (21.0-51.0); %Monocytes 8.2 % (0.0-10.0); %Neutrophils 71.7 % (42.0-75.0); Mean Corpuscular HGB CONC 34.8 g/dL (32.0-36.0); Mean Corpuscular Hemoglobin 32.4 pg (27.0-31.0); Mean Corpuscular Volume 93.1 fL (78.0-98.0); Mean Platelet Volume 9.2 fL (7.4-10.4); Platelet Count 128 thou/uL (130-400); RBC Distribution Width 14.4 % (11.5-14.5); Red Blood Cell (RBC) Count 4.64 mill/uL (4.70-6.10); White Blood Cell (WBC) Count 5.4 thou/uL (4.8-10.8)
[2022-05-29 04:13] LABS: ALT (SGPT) 308 U/L (8-55); AST (SGOT) 235 U/L (5-34); Albumin 3.3 g/dL (3.4-4.8); Alkaline Phosphatase 338 U/L (40-110); Anion Gap 16 mmol/L (10-20); BUN (Urea Nitrogen) 14 mg/dL (8.4-25.7); Bilirubin, Total 1.5 mg/dL (0.2-1.2); Calc. Creatinine Clearance 87 mL/min (70-130); Calcium 8.7 mg/dL (7.8-10.44); Carbon Dioxide 20 mmol/L (23-31); Chloride 107 mmol/L (98-107); Estimated GFR 95; Globulin 2.5 g/dL (2.4-3.5); Glucose 105 mg/dL (83-110); Lipase 19 U/L (8-78); Potassium 3.7 mmol/L (3.5-5.1); Protein, Total 5.8 g/dL (5.8-8.1); Sodium 139 mmol/L (136-145)
[2022-05-29 04:17] LABS: Vancomycin, Trough 7.6 ug/mL
[2022-05-29] MEDS: Vancomycin 1 GM in Premix Bag 1 BAG IVPB SCH (04:18)
[2022-05-29] MEDS ORDERED: Vancomycin HCl 500 MG in Sodium Chloride 0.9% 100 ML IVPB SCH (05:00)
[2022-05-29] MEDS: Famotidine/PF 20 mg/2ml Vial SLOW IVP SCH ×3 (09:00→20:46)
[2022-05-29] MEDS: Acetaminophen 325 MG TAB PO PRN (10:26)
[2022-05-29] MEDS: Dexamethasone 4 mg/ml Vial SLOW IVP SCH (10:26)
[2022-05-29] MEDS: Pantoprazole 40 MG VIAL IVP SCH (10:27)
[2022-05-29] MEDS: Ascorbic Acid 500 mg Chewable Tablet PO SCH (10:27)
[2022-05-29] MEDS: Zinc Sulfate 220 MG CAP PO SCH (10:27)
[2022-05-29] MEDS: Enoxaparin Sodium 60 MG/0.6 ML SYRINGE SC SCH ×2 (10:28→20:46)
[2022-05-29] MEDS: Dronedarone HCl 400 MG TAB PO SCH ×2 (10:37→16:15)
[2022-05-29] MEDS: Vancomycin 1.5 GRAM/300 ML BAG 1.5 GM in Premix Bag 1 BAG IVPB SCH (16:14)
[2022-05-29] MEDS: Dextrose 5 % And 0.9 % NaCl 1,000 ML IV SCH (20:47)
[2022-05-30] MEDS: Cefepime 2 GM in Sodium Chloride 0.9% 100 ML IVPB SCH ×2 (03:42→16:55)
[2022-05-30] MEDS: Vancomycin 1.5 GRAM/300 ML BAG 1.5 GM in Premix Bag 1 BAG IVPB SCH ×2 (05:20→16:55)
[2022-05-30] MEDS: Acetaminophen 325 MG TAB PO PRN ×2 (10:53→21:10)
[2022-05-30] MEDS: Pantoprazole 40 MG VIAL IVP SCH (10:54)
[2022-05-30] MEDS: Famotidine/PF 20 mg/2ml Vial SLOW IVP SCH (10:54)
[2022-05-30] MEDS: Dronedarone HCl 400 MG TAB PO SCH ×2 (15:00→16:55)
[2022-05-30] MEDS: Zinc Sulfate 220 MG CAP PO SCH (15:00)
[2022-05-30] MEDS: Enoxaparin Sodium 60 MG/0.6 ML SYRINGE SC SCH ×2 (15:00→21:11)
[2022-05-30 16:04] LABS: ALT (SGPT) 179 U/L (8-55); AST (SGOT) 82 U/L (5-34); Albumin 3.3 g/dL (3.4-4.8); Alkaline Phosphatase 261 U/L (40-110); Bilirubin, Direct 0.4 mg/dL (0.1-0.3); Protein, Total 6.1 g/dL (5.8-8.1)
[2022-05-30] MEDS: Ascorbic Acid 500 mg Chewable Tablet PO SCH (16:34)
[2022-05-30] MEDS ORDERED: Racepinephrine 2.25% 0.5 ML NEB ONE (16:50)
[2022-05-30] MEDS ORDERED: Melatonin 3 MG TAB PO SCH (21:00)
[2022-05-30] MEDS: Dextrose 5 % And 0.9 % NaCl 1,000 ML IV SCH (21:11)
[2022-05-30] MEDS: Benzonatate 100 MG CAP PO PRN (21:11)
[2022-05-31] MEDS: Cefepime 2 GM in Sodium Chloride 0.9% 100 ML IVPB SCH ×2 (02:42→14:25)
[2022-05-31 04:01] LABS: Vancomycin, Trough 26.9 ug/mL
[2022-05-31 04:02] LABS: ALT (SGPT) 131 U/L (8-55); AST (SGOT) 56 U/L (5-34); Albumin 2.9 g/dL (3.4-4.8); Alkaline Phosphatase 205 U/L (40-110); Anion Gap 12 mmol/L (10-20); BUN (Urea Nitrogen) 22 mg/dL (8.4-25.7); Bilirubin, Total 0.8 mg/dL (0.2-1.2); Calc. Creatinine Clearance 83 mL/min (70-130); Calcium 7.8 mg/dL (7.8-10.44); Carbon Dioxide 22 mmol/L (23-31); Chloride 110 mmol/L (98-107); Estimated GFR 93; Globulin 2.1 g/dL (2.4-3.5); Glucose 91 mg/dL (83-110); Potassium 3.4 mmol/L (3.5-5.1); Sodium 141 mmol/L (136-145)
[2022-05-31] MEDS: Vancomycin 1.5 GRAM/300 ML BAG 1.5 GM in Premix Bag 1 BAG IVPB SCH (04:30)
[2022-05-31] MEDS: Benzonatate 100 MG CAP PO PRN (10:38)
[2022-05-31] MEDS: Acetaminophen 325 MG TAB PO PRN ×2 (10:39→20:52)
[2022-05-31] MEDS: Ascorbic Acid 500 mg Chewable Tablet PO SCH (10:39)
[2022-05-31] MEDS: Enoxaparin Sodium 60 MG/0.6 ML SYRINGE SC SCH ×2 (10:40→20:53)
[2022-05-31] MEDS: Zinc Sulfate 220 MG CAP PO SCH (10:40)
[2022-05-31] MEDS: Dronedarone HCl 400 MG TAB PO SCH ×2 (10:42→18:35)
[2022-05-31] MEDS: Vancomycin 1 GM in Premix Bag 1 BAG IVPB SCH (14:25)
[2022-05-31] MEDS: Dextrose 5 % And 0.9 % NaCl 1,000 ML IV SCH (20:38)
[2022-06-01 04:04] LABS: ALT (SGPT) 97 U/L (8-55); AST (SGOT) 40 U/L (5-34); Albumin 2.8 g/dL (3.4-4.8); Alkaline Phosphatase 176 U/L (40-110); Anion Gap 12 mmol/L (10-20); BUN (Urea Nitrogen) 21 mg/dL (8.4-25.7); Bilirubin, Total 0.8 mg/dL (0.2-1.2); Calc. Creatinine Clearance 87 mL/min (70-130); Calcium 8.2 mg/dL (7.8-10.44); Carbon Dioxide 21 mmol/L (23-31); Chloride 109 mmol/L (98-107); Estimated GFR 95; Globulin 2.1 g/dL (2.4-3.5); Glucose 84 mg/dL (83-110); Potassium 3.1 mmol/L (3.5-5.1); Protein, Total 4.9 g/dL (5.8-8.1); Sodium 139 mmol/L (136-145)
[2022-06-01 04:26] LABS: #Lymphocytes 1.5 thou/uL (1.20-3.40); #Monocytes 0.6 thou/uL (0.11-0.59); #Neutrophils 4.4 thou/uL (1.40-6.50); %Basophils 0.2 % (0.0-1.0); %Eosinophils 0.4 % (0.0-10.0); %Lymphocytes 23.5 % (21.0-51.0); %Monocytes 9.3 % (0.0-10.0); %Neutrophils 66.5 % (42.0-75.0); Hemoglobin 14.1 g/dL (14.0-18.0); Mean Corpuscular HGB CONC 33.9 g/dL (32.0-36.0); Mean Corpuscular Hemoglobin 31.2 pg (27.0-31.0); Mean Platelet Volume 8.2 fL (7.4-10.4); Platelet Count 113 thou/uL (130-400); Platelet Morphology Comment Appears Decreased; RBC Distribution Width 14.2 % (11.5-14.5); RBC Morphology Normal; Red Blood Cell (RBC) Count 4.53 mill/uL (4.70-6.10); White Blood Cell (WBC) Count 6.6 thou/uL (4.8-10.8)
[2022-06-01] MEDS: Cefepime 2 GM in Sodium Chloride 0.9% 100 ML IVPB SCH (05:48)
[2022-06-01] MEDS: Vancomycin 1 GM in Premix Bag 1 BAG IVPB SCH (05:49)
[2022-06-01] MEDS: Dronedarone HCl 400 MG TAB PO SCH ×2 (08:54→17:11)
[2022-06-01] MEDS: Enoxaparin Sodium 60 MG/0.6 ML SYRINGE SC SCH ×2 (08:55→21:21)
[2022-06-01] MEDS: Zinc Sulfate 220 MG CAP PO SCH (08:55)
[2022-06-01] MEDS: Ascorbic Acid 500 mg Chewable Tablet PO SCH (08:55)
[2022-06-01] MEDS: Potassium Chloride 20 MEQ TAB PO SCH ×2 (10:49→14:55)
[2022-06-01] MEDS: metroNIDAZOLE 500 MG TAB PO SCH ×2 (14:55→21:21)
[2022-06-01] MEDS: Ciprofloxacin 500 MG TAB PO SCH (21:21)
[2022-06-01] MEDS: Benzonatate 100 MG CAP PO PRN (21:21)
[2022-06-01] MEDS: Acetaminophen 325 MG TAB PO PRN (21:21)
[2022-06-02] MEDS: Ciprofloxacin 500 MG TAB PO SCH ×2 (05:56→20:13)
[2022-06-02 06:43] LABS: #Lymphocytes 1.4 thou/uL (1.20-3.40); #Monocytes 0.5 thou/uL (0.11-0.59); %Basophils 0.3 % (0.0-1.0); %Eosinophils 0.2 % (0.0-10.0); %Lymphocytes 19.7 % (21.0-51.0); %Neutrophils 72.7 % (42.0-75.0); Hemoglobin 12.8 g/dL (14.0-18.0); Mean Corpuscular Hemoglobin 30.4 pg (27.0-31.0); Mean Corpuscular Volume 91.9 fL (78.0-98.0); Mean Platelet Volume 8.4 fL (7.4-10.4); Platelet Count 105 thou/uL (130-400); RBC Distribution Width 14.3 % (11.5-14.5); Red Blood Cell (RBC) Count 4.23 mill/uL (4.70-6.10); White Blood Cell (WBC) Count 6.9 thou/uL (4.8-10.8)
[2022-06-02 07:00] LABS: ALT (SGPT) 74 U/L (8-55); AST (SGOT) 34 U/L (5-34); Albumin 2.8 g/dL (3.4-4.8); Alkaline Phosphatase 153 U/L (40-110); Anion Gap 11 mmol/L (10-20); BUN (Urea Nitrogen) 15 mg/dL (8.4-25.7); Bilirubin, Total 1.1 mg/dL (0.2-1.2); Calc. Creatinine Clearance 78 mL/min (70-130); Calcium 8.5 mg/dL (7.8-10.44); Carbon Dioxide 24 mmol/L (23-31); Chloride 109 mmol/L (98-107); Estimated GFR 92; Globulin 2.2 g/dL (2.4-3.5); Glucose 93 mg/dL (83-110); Potassium 3.8 mmol/L (3.5-5.1); Sodium 140 mmol/L (136-145)
[2022-06-02] MEDS: metroNIDAZOLE 500 MG TAB PO SCH ×3 (08:49→20:14)
[2022-06-02] MEDS: Zinc Sulfate 220 MG CAP PO SCH (08:49)
[2022-06-02] MEDS: Ascorbic Acid 500 mg Chewable Tablet PO SCH (08:49)
[2022-06-02] MEDS: Enoxaparin Sodium 60 MG/0.6 ML SYRINGE SC SCH (08:49)
[2022-06-02] MEDS: Dronedarone HCl 400 MG TAB PO SCH ×2 (08:49→15:55)
[2022-06-02] MEDS: Benzonatate 100 MG CAP PO PRN ×2 (15:55→20:14)
[2022-06-02] MEDS: Apixaban 5 MG TAB PO SCH (20:14)
[2022-06-02] MEDS: Acetaminophen 325 MG TAB PO PRN (20:14)
[2022-06-03] MEDS: Ciprofloxacin 500 MG TAB PO SCH ×2 (05:37→21:34)
[2022-06-03] MEDS: Apixaban 5 MG TAB PO SCH ×2 (08:51→21:34)
[2022-06-03] MEDS: Dronedarone HCl 400 MG TAB PO SCH ×2 (08:51→16:56)
[2022-06-03] MEDS: Zinc Sulfate 220 MG CAP PO SCH (08:51)
[2022-06-03] MEDS: metroNIDAZOLE 500 MG TAB PO SCH (08:52)
[2022-06-03] MEDS: Ascorbic Acid 500 mg Chewable Tablet PO SCH (08:52)
[2022-06-04] MEDS: Ciprofloxacin 500 MG TAB PO SCH ×2 (06:19→21:00)
[2022-06-04] MEDS: Ascorbic Acid 500 mg Chewable Tablet PO SCH (09:23)
[2022-06-04] MEDS: Dronedarone HCl 400 MG TAB PO SCH ×2 (09:23→16:30)
[2022-06-04] MEDS: Apixaban 5 MG TAB PO SCH ×2 (09:23→21:00)
[2022-06-04] MEDS: Zinc Sulfate 220 MG CAP PO SCH (09:24)
[2022-06-05] MEDS: Ciprofloxacin 500 MG TAB PO SCH (06:30)
[2022-06-05 08:36] VITALS: BP 101/64; TEMP 98.7
[2022-06-05] MEDS: Ascorbic Acid 500 mg Chewable Tablet PO SCH (09:03)
[2022-06-05] MEDS: Zinc Sulfate 220 MG CAP PO SCH (09:03)
[2022-06-05] MEDS: Dronedarone HCl 400 MG TAB PO SCH (09:03)
[2022-06-05] MEDS: Apixaban 5 MG TAB PO SCH (09:03)
== END 2022-06-05 16:04 | DRG 444 ==
LOC: ERS 15:00 → IMCU/EMU 19:48 → T4-B 06-01 21:09
PROVIDERS: ADMIT Internal Medicine; ATTEND Internal Medicine
PROC: 3E03329 Introduction of Other Anti-infective into Peripheral Vein, Percutaneous Approach (ICD-10-PCS; principal; 2022-05-27)
PROC: 8E0ZXY6 Isolation (ICD-10-PCS; 2022-05-27)
PROC: 0F798ZZ Dilation of Common Bile Duct, Via Natural or Artificial Opening Endoscopic (ICD-10-PCS; 2022-05-28)
DX: K80.32 Calculus of bile duct with acute cholangitis without obstruction (principal); G93.41 Metabolic encephalopathy; U07.1 COVID-19; J12.82 Pneumonia due to coronavirus disease 2019; Z51.5 Encounter for palliative care; I10 Essential (primary) hypertension; I25.10 Atherosclerotic heart disease of native coronary artery without angina pectoris; G30.9 Alzheimer's disease, unspecified; F02.80 Dementia in other diseases classified elsewhere, unspecified severity, without behavioral disturbance, psychotic disturbance, mood disturbance, and anxiety; K21.9 Gastro-esophageal reflux disease without esophagitis; M06.9 Rheumatoid arthritis, unspecified; I48.0 Paroxysmal atrial fibrillation; E78.5 Hyperlipidemia, unspecified; Z95.5 Presence of coronary angioplasty implant and graft; Z79.01 Long term (current) use of anticoagulants; Z95.0 Presence of cardiac pacemaker; Z79.51 Long term (current) use of inhaled steroids; Z79.52 Long term (current) use of systemic steroids; Z79.899 Other long term (current) drug therapy; Z86.12 Personal history of poliomyelitis; Z98.890 Other specified postprocedural states
CPT/HCPCS: 36415; 51701; 70450; 71045; 74177; 74181; 74330; 80053; 80076; 80202; 81003; 82805; 83605; 83690; 84145; 84484; 85025; 86140; 87040; 87086; 93005; 96365; 96375; C9113; J0692; J1100; J1650; J2358; J2405; J2704; J3370; J3490; J7042; J7120; Q9967; S0028; U0002

== ENCOUNTER 2022-07-30 16:49 | Inpatient (IN) | payer MEDICARE, MEDICAID ==
[2022-07-30 19:35] LABS: #Monocytes 1.3 thou/uL (0.11-0.59); #Neutrophils 12.6 thou/uL (1.40-6.50); %Basophils 0.1 % (0.0-1.0); %Lymphocytes 6.8 % (21.0-51.0); %Monocytes 8.6 % (0.0-10.0); %Neutrophils 84.6 % (42.0-75.0); Hemoglobin 12.1 g/dL (14.0-18.0); Mean Corpuscular HGB CONC 32.6 g/dL (32.0-36.0); Mean Corpuscular Hemoglobin 30.1 pg (27.0-31.0); Mean Corpuscular Volume 92.4 fl (78.0-98.0); Mean Platelet Volume 6.9 fL (7.4-10.4); Platelet Count 233 thou/uL (130-400); RBC Distribution Width 14.5 % (11.5-14.5); Red Blood Cell (RBC) Count 4.01 mill/uL (4.70-6.10); White Blood Cell (WBC) Count 14.9 thou/uL (4.8-10.8)
[2022-07-30 19:50] LABS: ALT (SGPT) 16 U/L (8-55); AST (SGOT) 22 U/L (5-34); Albumin 2.9 g/dL (3.4-4.8); Alkaline Phosphatase 56 U/L (40-110); Anion Gap 11 mmol/L (10-20); BUN (Urea Nitrogen) 21 mg/dL (8.4-25.7); Bilirubin, Total 2.4 mg/dL (0.2-1.2); Calc. Creatinine Clearance 0 mL/min (70-130); Calcium 8.2 mg/dL (7.8-10.44); Carbon Dioxide 23 mmol/L (23-31); Chloride 106 mmol/L (98-107); Estimated GFR 95; Globulin 2.8 g/dL (2.4-3.5); Glucose 153 mg/dL (83-110); Potassium 3.6 mmol/L (3.5-5.1); Protein, Total 5.7 g/dL (5.8-8.1)
[2022-07-30 19:51] LABS: Sodium 136 mmol/L (136-145)
[2022-07-30 20:38] LABS: Bacteria/HPF 4+ HPF (None Seen); Bilirubin Negative (Negative); Blood, Urine Negative (Negative); Clarity Turbid (Clear); Glucose, Urine (Dipstick) Normal (Negative); Ketone, Urine Negative (Negative); Leukocyte 500 Leu/uL (Negative); Nitrite Negative (Negative); Protein, Urine (Dipstick) 100 mg/dL (Neg-Trace); RBC/HPF 0-3 HPF (0-3); Specific Gravity, Urine 1.027 (1.002-1.036); Squamous Epithelial None Seen HPF (0-3); Triple Phosphate Crystal Rare HPF (None Seen); Urobilinogen Greater than 12 mg/dL (Less than 2); WBC/HPF Greater than 50 HPF (0-3); pH, Urine 8.5 (5.0-9.0)
[2022-07-30] MEDS ORDERED: cefTRIAXone\\ROCEPHIN 2 GM VIAL ONE (21:21)
[2022-07-30] MEDS ORDERED: Ondansetron PF 4 MG/2 ML Vial IVP PRN (22:45)
[2022-07-30] MEDS ORDERED: Acetaminophen/Codeine 30-300mg Tablet PO PRN (23:05)
[2022-07-31 02:57] VITALS: BMI 22.7
[2022-07-31 06:44] LABS: Anion Gap 9 mmol/L (10-20); BUN (Urea Nitrogen) 19 mg/dL (8.4-25.7); Calc. Creatinine Clearance 102 mL/min (70-130); Calcium 8.1 mg/dL (7.8-10.44); Carbon Dioxide 26 mmol/L (23-31); Chloride 104 mmol/L (98-107); Estimated GFR 98; Glucose 83 mg/dL (83-110); Potassium 3.7 mmol/L (3.5-5.1); Sodium 135 mmol/L (136-145)
[2022-07-31 06:52] LABS: #Lymphocytes 1.1 thou/uL (1.20-3.40); #Monocytes 1.1 thou/uL (0.11-0.59); #Neutrophils 9.9 thou/uL (1.40-6.50); %Eosinophils 0.2 % (0.0-10.0); %Lymphocytes 9.2 % (21.0-51.0); %Monocytes 8.8 % (0.0-10.0); %Neutrophils 81.9 % (42.0-75.0); Hemoglobin 11.5 g/dL (14.0-18.0); Mean Corpuscular HGB CONC 31.2 g/dL (32.0-36.0); Mean Corpuscular Hemoglobin 29.1 pg (27.0-31.0); Mean Corpuscular Volume 93.2 fl (78.0-98.0); Mean Platelet Volume 7.4 fL (7.4-10.4); Platelet Count 228 thou/uL (130-400); RBC Distribution Width 14.5 % (11.5-14.5); Red Blood Cell (RBC) Count 3.96 mill/uL (4.70-6.10); White Blood Cell (WBC) Count 12.1 thou/uL (4.8-10.8)
[2022-07-31] MEDS: Acetaminophen 325 MG TAB PO PRN ×2 (08:12→21:14)
[2022-07-31] MEDS ORDERED: Acetaminophen/Codeine 30-300mg Tablet PO PRN (18:17)
[2022-07-31] MEDS: Mometasone 100 MCG/PUFF (1 INHALER) INH SCH (18:57)
[2022-07-31] MEDS: Rosuvastatin 20 MG TAB PO SCH (21:06)
[2022-07-31] MEDS: cefTRIAXone\\ROCEPHIN 1 GM in Sodium Chloride 0.9% 100 ML IVPB SCH (21:06)
[2022-08-01] MEDS: Mometasone 100 MCG/PUFF (1 INHALER) INH SCH ×2 (07:13→19:23)
[2022-08-01 07:34] LABS: #Lymphocytes 1.2 thou/uL (1.20-3.40); #Monocytes 0.6 thou/uL (0.11-0.59); #Neutrophils 7.6 thou/uL (1.40-6.50); %Basophils 0.2 % (0.0-1.0); %Eosinophils 0.4 % (0.0-10.0); %Lymphocytes 13.2 % (21.0-51.0); %Monocytes 5.8 % (0.0-10.0); %Neutrophils 80.5 % (42.0-75.0); Hemoglobin 12.5 g/dL (14.0-18.0); Mean Corpuscular HGB CONC 32.5 g/dL (32.0-36.0); Mean Corpuscular Hemoglobin 30.8 pg (27.0-31.0); Mean Corpuscular Volume 94.8 fl (78.0-98.0); Mean Platelet Volume 7.1 fL (7.4-10.4); Platelet Count 270 thou/uL (130-400); RBC Distribution Width 14.5 % (11.5-14.5); Red Blood Cell (RBC) Count 4.06 mill/uL (4.70-6.10); White Blood Cell (WBC) Count 9.4 thou/uL (4.8-10.8)
[2022-08-01 07:52] LABS: Anion Gap 10 mmol/L (10-20); BUN (Urea Nitrogen) 17 mg/dL (8.4-25.7); Calc. Creatinine Clearance 90 mL/min (70-130); Calcium 8.3 mg/dL (7.8-10.44); Carbon Dioxide 24 mmol/L (23-31); Chloride 108 mmol/L (98-107); Estimated GFR 94; Glucose 83 mg/dL (83-110); Potassium 3.8 mmol/L (3.5-5.1); Sodium 138 mmol/L (136-145)
[2022-08-01] MEDS: Dronedarone HCl 400 MG TAB PO SCH ×2 (08:47→16:54)
[2022-08-01] MEDS: predniSONE 1 MG TAB PO SCH (08:47)
[2022-08-01 10:21] LABS: Bilirubin, Direct 0.4 mg/dL (0.1-0.3); Bilirubin, Total 0.8 mg/dL (0.2-1.2)
[2022-08-01] MEDS: Rosuvastatin 20 MG TAB PO SCH (20:14)
[2022-08-01] MEDS: cefTRIAXone\\ROCEPHIN 1 GM in Sodium Chloride 0.9% 100 ML IVPB SCH (21:18)
[2022-08-02 06:45] LABS: #Monocytes 0.6 thou/uL (0.11-0.59); #Neutrophils 7.6 thou/uL (1.40-6.50); %Basophils 0.2 % (0.0-1.0); %Eosinophils 0.5 % (0.0-10.0); %Lymphocytes 10.3 % (21.0-51.0); %Monocytes 6.8 % (0.0-10.0); %Neutrophils 82.2 % (42.0-75.0); Hemoglobin 11.2 g/dL (14.0-18.0); Mean Corpuscular HGB CONC 32.4 g/dL (32.0-36.0); Mean Corpuscular Hemoglobin 30.2 pg (27.0-31.0); Platelet Count 261 thou/uL (130-400); RBC Distribution Width 14.5 % (11.5-14.5); White Blood Cell (WBC) Count 9.3 thou/uL (4.8-10.8)
[2022-08-02 06:54] LABS: ALT (SGPT) 14 U/L (8-55); AST (SGOT) 14 U/L (5-34); Albumin 2.7 g/dL (3.4-4.8); Alkaline Phosphatase 49 U/L (40-110); Anion Gap 11 mmol/L (10-20); BUN (Urea Nitrogen) 16 mg/dL (8.4-25.7); Bilirubin, Total 0.7 mg/dL (0.2-1.2); Calc. Creatinine Clearance 84 mL/min (70-130); Calcium 8.1 mg/dL (7.8-10.44); Carbon Dioxide 24 mmol/L (23-31); Chloride 107 mmol/L (98-107); Estimated GFR 92; Globulin 2.8 g/dL (2.4-3.5); Glucose 96 mg/dL (83-110); Potassium 3.7 mmol/L (3.5-5.1); Protein, Total 5.5 g/dL (5.8-8.1); Sodium 138 mmol/L (136-145)
[2022-08-02] MEDS: Mometasone 100 MCG/PUFF (1 INHALER) INH SCH (07:03)
[2022-08-02] MEDS: predniSONE 1 MG TAB PO SCH (09:41)
[2022-08-02] MEDS: Dronedarone HCl 400 MG TAB PO SCH (09:41)
[2022-08-02 14:27] VITALS: BP 120/70; TEMP 98.5
== END 2022-08-02 16:27 | DRG 871 ==
LOC: ERS 16:49 → T4-A 22:45 → OBSVTOIN 07-31 14:09
PROVIDERS: ADMIT Internal Medicine; ATTEND Family Medicine
DX: A41.4 Sepsis due to anaerobes (principal); Z66 Do not resuscitate; Z51.5 Encounter for palliative care; G93.41 Metabolic encephalopathy; N30.00 Acute cystitis without hematuria; J98.11 Atelectasis; K80.50 Calculus of bile duct without cholangitis or cholecystitis without obstruction; M25.512 Pain in left shoulder; I48.0 Paroxysmal atrial fibrillation; R29.6 Repeated falls; I25.10 Atherosclerotic heart disease of native coronary artery without angina pectoris; I10 Essential (primary) hypertension; Z79.01 Long term (current) use of anticoagulants; Z91.81 History of falling; Z79.899 Other long term (current) drug therapy; Z79.51 Long term (current) use of inhaled steroids
CPT/HCPCS: 36415; 70450; 74176; 74181; 76705; 80048; 80053; 81003; 81015; 82247; 82274; 83605; 85025; 87040; 87077; 87086; 87186; 93005; 94640; 96365; G0378; J0696; J3490; J7512; J7620

== ENCOUNTER 2022-09-09 18:10 | Emergency (ER) | payer MEDICARE, MEDICAID ==
[2022-09-09 20:17] LABS: #Lymphocytes 1.1 thou/uL (1.20-3.40); #Monocytes 1.2 thou/uL (0.11-0.59); #Neutrophils 11.6 thou/uL (1.40-6.50); %Basophils 0.1 % (0.0-1.0); %Eosinophils 0.2 % (0.0-10.0); %Lymphocytes 7.8 % (21.0-51.0); %Monocytes 8.7 % (0.0-10.0); %Neutrophils 83.1 % (42.0-75.0); Hemoglobin 12.7 g/dL (14.0-18.0); Mean Corpuscular HGB CONC 32.9 g/dL (32.0-36.0); Mean Corpuscular Volume 91.1 fl (78.0-98.0); Mean Platelet Volume 6.8 fL (7.4-10.4); Platelet Count 227 10x3/uL (130-400); RBC Distribution Width 14.3 % (11.5-14.5); Red Blood Cell (RBC) Count 4.22 mill/uL (4.70-6.10)
[2022-09-09 20:29] LABS: Bilirubin Negative (Negative); Blood, Urine Negative (Negative); Clarity Clear (Clear); Glucose, Urine (Dipstick) Normal (Negative); Ketone, Urine Negative (Negative); Leukocyte Negative Leu/uL (Negative); Nitrite Negative (Negative); Protein, Urine (Dipstick) 20 mg/dL (Neg-Trace); Specific Gravity, Urine 1.028 (1.002-1.036); Urobilinogen 12 mg/dL (Less than 2)
[2022-09-09 20:38] LABS: ALT (SGPT) 12 U/L (8-55); AST (SGOT) 18 U/L (5-34); Alkaline Phosphatase 60 U/L (40-110); Anion Gap 12 mmol/L (10-20); BUN (Urea Nitrogen) 19 mg/dL (8.4-25.7); Bilirubin, Total 1.3 mg/dL (0.2-1.2); Calc. Creatinine Clearance 0 mL/min (70-130); Calcium 8.5 mg/dL (7.8-10.44); Carbon Dioxide 23 mmol/L (23-31); Chloride 105 mmol/L (98-107); Estimated GFR 92; Globulin 3.2 g/dL (2.4-3.5); Glucose 101 mg/dL (83-110); Potassium 3.6 mmol/L (3.5-5.1); Protein, Total 6.2 g/dL (5.8-8.1); Sodium 136 mmol/L (136-145)
== END 2022-09-09 22:31 ==
LOC: ERS 18:10
DX: J18.9 Pneumonia, unspecified organism (principal); V00.811A Fall from moving wheelchair (powered), initial encounter; I11.0 Hypertensive heart disease with heart failure; I50.9 Heart failure, unspecified; K21.9 Gastro-esophageal reflux disease without esophagitis; Z79.899 Other long term (current) drug therapy
CPT/HCPCS: 36415; 51701; 70450; 71045; 80053; 81003; 83880; 84484; 85025; 93005

== ENCOUNTER 2022-09-17 17:05 | Inpatient (IN) | payer MEDICARE, MEDICAID ==
[2022-09-17 21:13] LABS: Actual Bicarbonate (HCO3a) 24.6 mEq/L (22-28); Analyzer IN Cardio ER; Base Excess (BEa) 0.3 mEq/L (-2.0 to +3.0); CO2 Tension 38.4 mmHg (35.0-45.0); Calcium, Ionized (arterial) 1.17 mmol/L (1.12-1.30); Carboxyhemoglobin (COHb) 0.5 gm% (0.0-3.0); Potassium - ABG Lab 3.47 mmol/L (3.70-5.30); pH, Arterial 7.42 (7.35-7.45)
[2022-09-17 21:29] LABS: Puncture Site L RAD
[2022-09-17 21:42] LABS: #Eosinphils 0.1 thou/uL (0.0-0.7); #Lymphocytes 1.4 thou/uL (1.20-3.40); #Monocytes 0.9 thou/uL (0.11-0.59); %Basophils 0.3 % (0.0-1.0); %Eosinophils 1.6 % (0.0-10.0); %Monocytes 10.1 % (0.0-10.0); Hemoglobin 12.6 g/dL (14.0-18.0); Mean Corpuscular HGB CONC 32.1 g/dL (32.0-36.0); Mean Corpuscular Hemoglobin 29.1 pg (27.0-31.0); Mean Corpuscular Volume 90.8 fl (78.0-98.0); Mean Platelet Volume 6.9 fL (7.4-10.4); Platelet Count 264 10x3/uL (130-400); RBC Distribution Width 14.3 % (11.5-14.5); Red Blood Cell (RBC) Count 4.33 mill/uL (4.70-6.10); White Blood Cell (WBC) Count 8.4 10x3/uL (4.8-10.8)
[2022-09-17 21:42] LABS: Bilirubin Negative (Negative); Blood, Urine Negative (Negative); Clarity Clear (Clear); Glucose, Urine (Dipstick) Normal (Negative); Ketone, Urine Trace mg/dL (Negative); Leukocyte 500 Leu/uL (Negative); Nitrite Negative (Negative); Protein, Urine (Dipstick) 50 mg/dL (Neg-Trace); RBC/HPF 0-3 HPF (0-3); Specific Gravity, Urine 1.032 (1.002-1.036); Squamous Epithelial None Seen HPF (0-3); Urobilinogen 6 mg/dL (Less than 2); WBC/HPF Greater than 50 HPF (0-3)
[2022-09-17 21:46] LABS: Bacteria/HPF 1+ HPF (None Seen)
[2022-09-17 21:54] LABS: INR-International Normal Ratio 1.2; Prothrombin Time 15.7 sec (12.0-14.7)
[2022-09-17 22:12] LABS: ALT (SGPT) 12 U/L (8-55); AST (SGOT) 17 U/L (5-34); Albumin 2.9 g/dL (3.4-4.8); Alkaline Phosphatase 57 U/L (40-110); Anion Gap 14 mmol/L (10-20); BUN (Urea Nitrogen) 17 mg/dL (8.4-25.7); Bilirubin, Total 1.2 mg/dL (0.2-1.2); Calc. Creatinine Clearance 0 mL/min (70-130); Calcium 8.4 mg/dL (7.8-10.44); Carbon Dioxide 23 mmol/L (23-31); Chloride 104 mmol/L (98-107); Estimated GFR 92; Globulin 3.2 g/dL (2.4-3.5); Glucose 86 mg/dL (83-110); Potassium 3.5 mmol/L (3.5-5.1); Protein, Total 6.1 g/dL (5.8-8.1); Sodium 137 mmol/L (136-145)
[2022-09-17] MEDS ORDERED: cefTRIAXone\\ROCEPHIN 2 GM VIAL ONE (23:32)
[2022-09-17] MEDS ORDERED: Ondansetron PF 4 MG/2 ML Vial IVP PRN (23:50)
[2022-09-17] MEDS ORDERED: Acetaminophen 650 MG Suppository PR PRN (23:50)
[2022-09-17] MEDS ORDERED: Ondansetron ODT 4 MG TAB PO PRN (23:50)
[2022-09-18] MEDS: Doxycycline 100 MG in Sodium Chloride 0.9% 100 ML IVPB SCH ×2 (04:31→16:18)
[2022-09-18 05:01] LABS: #Eosinphils 0.1 thou/uL (0.0-0.7); #Lymphocytes 1.4 thou/uL (1.20-3.40); #Monocytes 0.8 thou/uL (0.11-0.59); #Neutrophils 6.9 thou/uL (1.40-6.50); %Basophils 0.3 % (0.0-1.0); %Eosinophils 1.3 % (0.0-10.0); %Lymphocytes 15.5 % (21.0-51.0); %Neutrophils 73.9 % (42.0-75.0); Hemoglobin 13.2 g/dL (14.0-18.0); Mean Corpuscular HGB CONC 33.7 g/dL (32.0-36.0); Mean Corpuscular Volume 89.1 fl (78.0-98.0); Mean Platelet Volume 7.1 fL (7.4-10.4); Platelet Count 236 10x3/uL (130-400); RBC Distribution Width 14.2 % (11.5-14.5); White Blood Cell (WBC) Count 9.3 10x3/uL (4.8-10.8)
[2022-09-18 05:12] LABS: Anion Gap 14 mmol/L (10-20); BUN (Urea Nitrogen) 15 mg/dL (8.4-25.7); Calc. Creatinine Clearance 0 mL/min (70-130); Calcium 8.3 mg/dL (7.8-10.44); Carbon Dioxide 20 mmol/L (23-31); Chloride 106 mmol/L (98-107); Estimated GFR 97; Glucose 74 mg/dL (83-110); Potassium 3.5 mmol/L (3.5-5.1); Sodium 136 mmol/L (136-145)
[2022-09-18] MEDS ORDERED: Enoxaparin Sodium 40 MG/0.4 ML SYRINGE ONE (08:39)
[2022-09-18] MEDS: Enoxaparin Sodium 40 MG/0.4 ML SYRINGE SC SCH (09:08)
[2022-09-18 12:08] LABS: SARS-CoV-2 NAA Rapid Test Not Detected (NotDetected)
[2022-09-18] MEDS ORDERED: Albuterol Sulfate 2.5 mg/3 ml Neb NEB PRN (14:59)
[2022-09-18] MEDS ORDERED: Benzonatate 100 MG CAP ONE (15:58)
[2022-09-18 16:04] LABS: Bilirubin Negative (Negative); Blood, Urine 1+ (Negative); CAUTI Indications for Culture Alt mental st,lethar; Clarity Turbid (Clear); Glucose, Urine (Dipstick) Normal (Negative); Ketone, Urine 20 mg/dL (Negative); Leukocyte 500 Leu/uL (Negative); Nitrite Negative (Negative); Protein, Urine (Dipstick) 30 mg/dL (Neg-Trace); Specific Gravity, Urine 1.019 (1.002-1.036); Squamous Epithelial 0-3 HPF (0-3); Urobilinogen 3 mg/dL (Less than 2); WBC/HPF Greater than 50 HPF (0-3)
[2022-09-18 16:07] LABS: Bacteria/HPF 1+ HPF (None Seen)
[2022-09-18 16:08] LABS: Urine Culture Reflex Yes Yes
[2022-09-18] MEDS: Benzonatate 100 MG CAP PO SCH ×2 (16:18→21:27)
[2022-09-18] MEDS: Dronedarone HCl 400 MG TAB PO SCH (18:07)
[2022-09-18 20:06] VITALS: BMI 19.5
[2022-09-18] MEDS: Ferrous Sulfate 325 MG TAB PO SCH (21:26)
[2022-09-18] MEDS: Magnesium Oxide 250 MG TAB PO SCH (21:26)
[2022-09-18] MEDS: guaiFENesin ER 600 MG TAB PO SCH (21:26)
[2022-09-18] MEDS: Melatonin 3 MG TAB PO SCH (21:27)
[2022-09-18] MEDS: Senokot S 8.6-50 MG TAB PO SCH (21:27)
[2022-09-18] MEDS: Rosuvastatin 20 MG TAB PO SCH (21:27)
[2022-09-18] MEDS: Acetaminophen 325 MG TAB PO PRN (21:27)
[2022-09-19] MEDS: Doxycycline 100 MG in Sodium Chloride 0.9% 100 ML IVPB SCH ×2 (02:59→15:17)
[2022-09-19] MEDS: Magnesium Oxide 250 MG TAB PO SCH ×2 (03:05→21:12)
[2022-09-19] MEDS: Melatonin 3 MG TAB PO SCH ×2 (03:05→21:14)
[2022-09-19] MEDS: Benzonatate 100 MG CAP PO SCH ×4 (03:05→21:12)
[2022-09-19] MEDS: Senokot S 8.6-50 MG TAB PO SCH ×3 (03:05→21:12)
[2022-09-19] MEDS: Rosuvastatin 20 MG TAB PO SCH ×2 (03:05→21:12)
[2022-09-19] MEDS: guaiFENesin ER 600 MG TAB PO SCH ×3 (03:05→21:12)
[2022-09-19] MEDS: Ferrous Sulfate 325 MG TAB PO SCH ×4 (03:05→21:12)
[2022-09-19] MEDS ORDERED: FLU VACC QS2022-23(65YR UP)/PF 240 MCG/0.7 ML SYRINGE IM ONE (09:00)
[2022-09-19] MEDS ORDERED: Alendronate Sodium 70 mg Tablet PO SCH (09:00)
[2022-09-19] MEDS: Fish Oil 1,000 MG CAP PO SCH (09:15)
[2022-09-19] MEDS: Ascorbic Acid 500 mg Chewable Tablet PO SCH (09:16)
[2022-09-19] MEDS: Cyanocobalamin (Vitamin B-12) 1,000 MCG TAB PO SCH (09:16)
[2022-09-19] MEDS: Dronedarone HCl 400 MG TAB PO SCH ×2 (09:16→17:55)
[2022-09-19] MEDS: Saccharomyces boulardii 250 MG CAP PO SCH (09:16)
[2022-09-19] MEDS: Zinc Sulfate 220 MG CAP PO SCH (09:17)
[2022-09-19] MEDS: Enoxaparin Sodium 40 MG/0.4 ML SYRINGE SC SCH (09:17)
[2022-09-19] MEDS: predniSONE 1 MG TAB PO SCH (09:17)
[2022-09-19] MEDS: Polyethylene Glycol OPTH DROP 15 ML BOT EA EYE SCH (09:27)
[2022-09-19] MEDS: Acetaminophen 325 MG TAB PO PRN (21:13)
[2022-09-20] MEDS: Doxycycline 100 MG in Sodium Chloride 0.9% 100 ML IVPB SCH ×2 (02:47→14:00)
[2022-09-20 04:44] LABS: #Eosinphils 0.1 thou/uL (0.0-0.7); #Monocytes 0.6 thou/uL (0.11-0.59); #Neutrophils 7.1 thou/uL (1.40-6.50); %Basophils 0.2 % (0.0-1.0); %Eosinophils 0.6 % (0.0-10.0); %Lymphocytes 20.4 % (21.0-51.0); %Monocytes 6.3 % (0.0-10.0); %Neutrophils 72.6 % (42.0-75.0); Hemoglobin 12.4 g/dL (14.0-18.0); Mean Corpuscular HGB CONC 32.8 g/dL (32.0-36.0); Mean Corpuscular Hemoglobin 29.5 pg (27.0-31.0); Mean Corpuscular Volume 89.8 fl (78.0-98.0); Mean Platelet Volume 6.9 fL (7.4-10.4); Platelet Count 266 10x3/uL (130-400); RBC Distribution Width 14.3 % (11.5-14.5); Red Blood Cell (RBC) Count 4.22 mill/uL (4.70-6.10); White Blood Cell (WBC) Count 9.7 10x3/uL (4.8-10.8)
[2022-09-20 05:06] LABS: Anion Gap 12 mmol/L (10-20); BUN (Urea Nitrogen) 15 mg/dL (8.4-25.7); Calc. Creatinine Clearance 76 mL/min (70-130); Carbon Dioxide 20 mmol/L (23-31); Chloride 106 mmol/L (98-107); Estimated GFR 93; Glucose 65 mg/dL (83-110); Magnesium 1.9 mg/dL (1.6-2.6); Phosphorus 2.4 mg/dL (2.3-4.7); Potassium 3.4 mmol/L (3.5-5.1); Sodium 135 mmol/L (136-145)
[2022-09-20 08:12] VITALS: TEMP 98.2
[2022-09-20] MEDS: Fish Oil 1,000 MG CAP PO SCH ×2 (08:43→09:01)
[2022-09-20] MEDS: Ferrous Sulfate 325 MG TAB PO SCH ×2 (08:43→15:37)
[2022-09-20] MEDS: Cyanocobalamin (Vitamin B-12) 1,000 MCG TAB PO SCH (08:43)
[2022-09-20] MEDS: Ascorbic Acid 500 mg Chewable Tablet PO SCH (08:43)
[2022-09-20] MEDS: Dronedarone HCl 400 MG TAB PO SCH (08:43)
[2022-09-20] MEDS: Zinc Sulfate 220 MG CAP PO SCH (08:43)
[2022-09-20] MEDS: Saccharomyces boulardii 250 MG CAP PO SCH (08:43)
[2022-09-20] MEDS: Benzonatate 100 MG CAP PO SCH ×2 (08:44→15:06)
[2022-09-20] MEDS: Senokot S 8.6-50 MG TAB PO SCH (08:44)
[2022-09-20] MEDS: predniSONE 1 MG TAB PO SCH (08:44)
[2022-09-20] MEDS: Enoxaparin Sodium 40 MG/0.4 ML SYRINGE SC SCH (08:44)
[2022-09-20] MEDS: Polyethylene Glycol OPTH DROP 15 ML BOT EA EYE SCH (09:00)
[2022-09-20] MEDS: guaiFENesin ER 600 MG TAB PO SCH (09:00)
[2022-09-20] MEDS: Acetaminophen 325 MG TAB PO PRN (15:34)
[2022-09-20 15:39] VITALS: BP 109/70
[2022-09-22] MEDS ORDERED: Ergocalciferol 1.25 MG(50,000 UNITS) CAP PO SCH (09:00)
== END 2022-09-20 16:31 | DRG 193 ==
LOC: ERS 17:05 → ERHOLD 23:09 → OBSVTOIN 09-18 14:57 → 2NO 09-18 19:39
PROVIDERS: ADMIT Family Medicine; ATTEND Family Medicine
DX: J12.9 Viral pneumonia, unspecified (principal); G93.41 Metabolic encephalopathy; M48.56XA Collapsed vertebra, not elsewhere classified, lumbar region, initial encounter for fracture; N39.0 Urinary tract infection, site not specified; Z66 Do not resuscitate; Z20.822 Contact with and (suspected) exposure to COVID-19; Z28.21 Immunization not carried out because of patient refusal; F03.90 Unspecified dementia, unspecified severity, without behavioral disturbance, psychotic disturbance, mood disturbance, and anxiety; I10 Essential (primary) hypertension; I25.10 Atherosclerotic heart disease of native coronary artery without angina pectoris; I48.91 Unspecified atrial fibrillation; M06.9 Rheumatoid arthritis, unspecified; K21.9 Gastro-esophageal reflux disease without esophagitis; R29.6 Repeated falls; Z79.01 Long term (current) use of anticoagulants; Z79.899 Other long term (current) drug therapy; Z79.51 Long term (current) use of inhaled steroids; Z95.5 Presence of coronary angioplasty implant and graft; Z95.0 Presence of cardiac pacemaker; Z91.81 History of falling
CPT/HCPCS: 36415; 51701; 70450; 71045; 72125; 72128; 72131; 80048; 80053; 81001; 81003; 81015; 82805; 83735; 84100; 84145; 84484; 85025; 85610; 85730; 87040; 87086; 93005; 96365; J0696; J1650; J3490; J7512

== ENCOUNTER 2023-01-16 20:21 | Inpatient (IN) | payer MEDICARE, MEDICAID ==
[2023-01-16 21:28] LABS: #Eosinphils 0.1 thou/uL (0.0-0.7); #Lymphocytes 1.4 thou/uL (1.20-3.40); #Neutrophils 7.7 thou/uL (1.40-6.50); %Basophils 0.4 % (0.0-1.0); %Lymphocytes 13.5 % (21.0-51.0); %Monocytes 9.6 % (0.0-10.0); %Neutrophils 75.5 % (42.0-75.0); Hemoglobin 13.8 g/dL (14.0-18.0); Mean Corpuscular HGB CONC 34.4 g/dL (32.0-36.0); Mean Corpuscular Volume 93.1 fl (78.0-98.0); Mean Platelet Volume 7.1 fL (7.4-10.4); Platelet Count 219 10x3/uL (130-400); Red Blood Cell (RBC) Count 4.32 mill/uL (4.70-6.10); White Blood Cell (WBC) Count 10.2 10x3/uL (4.8-10.8)
[2023-01-16 21:49] LABS: ALT (SGPT) 13 U/L (8-55); AST (SGOT) 19 U/L (5-34); Albumin 3.3 g/dL (3.4-4.8); Alkaline Phosphatase 72 U/L (40-110); Anion Gap 12 mmol/L (10-20); BUN (Urea Nitrogen) 23 mg/dL (8.4-25.7); Bilirubin, Total 0.9 mg/dL (0.2-1.2); Calc. Creatinine Clearance 0 mL/min (70-130); Calcium 8.9 mg/dL (7.8-10.44); Carbon Dioxide 25 mmol/L (23-31); Chloride 106 mmol/L (98-107); Estimated GFR 92; Globulin 3.3 g/dL (2.4-3.5); Glucose 90 mg/dL (83-110); Lipase 14 U/L (8-78); Protein, Total 6.6 g/dL (5.8-8.1); Sodium 139 mmol/L (136-145)
[2023-01-16 22:07] LABS: SARS-CoV-2 NAA Rapid Test Not Detected (NotDetected)
[2023-01-16] MEDS ORDERED: cefTRIAXone (ROCEPHIN) 1 GM VIAL ONE ×2 (23:04→23:07)
[2023-01-16] MEDS ORDERED: Azithromycin 500 MG VIAL ONE (23:04)
[2023-01-17 00:14] VITALS: BMI 22.7
[2023-01-17 03:04] LABS: Troponin I Less than 0.010 ng/mL (< 0.028)
[2023-01-17] MEDS: Benzonatate 100 MG CAP PO PRN (03:20)
[2023-01-17] MEDS ORDERED: Benzonatate 100 MG CAP ONE (03:21)
[2023-01-17] MEDS ORDERED: Ondansetron ODT 4 MG TAB PO PRN (05:19)
[2023-01-17] MEDS ORDERED: Ondansetron PF 4 MG/2 ML Vial IVP PRN (05:19)
[2023-01-17] MEDS ORDERED: Acetaminophen 650 MG Suppository PR PRN (05:19)
[2023-01-17 05:30] LABS: Troponin I Less than 0.010 ng/mL (< 0.028)
[2023-01-17] MEDS ORDERED: Furosemide 20 MG/2 ML VIAL SLOW IVP SCH (05:30)
[2023-01-17] MEDS ORDERED: Furosemide 20 MG/2 ML VIAL ONE (05:49)
[2023-01-17] MEDS ORDERED: cefTRIAXone (ROCEPHIN) 1 GM VIAL ONE (05:49)
[2023-01-17 06:18] LABS: #Eosinphils 0.1 thou/uL (0.0-0.7); #Lymphocytes 1.2 thou/uL (1.20-3.40); %Basophils 0.2 % (0.0-1.0); %Eosinophils 1.1 % (0.0-10.0); %Lymphocytes 9.5 % (21.0-51.0); %Monocytes 7.8 % (0.0-10.0); %Neutrophils 81.5 % (42.0-75.0); Hemoglobin 12.2 g/dL (14.0-18.0); Mean Corpuscular HGB CONC 33.5 g/dL (32.0-36.0); Mean Corpuscular Hemoglobin 31.1 pg (27.0-31.0); Mean Corpuscular Volume 92.9 fl (78.0-98.0); Platelet Count 205 10x3/uL (130-400); RBC Distribution Width 14.9 % (11.5-14.5); Red Blood Cell (RBC) Count 3.91 mill/uL (4.70-6.10); White Blood Cell (WBC) Count 12.2 10x3/uL (4.8-10.8)
[2023-01-17 06:43] LABS: Anion Gap 11 mmol/L (10-20); BUN (Urea Nitrogen) 21 mg/dL (8.4-25.7); Calc. Creatinine Clearance 87 mL/min (70-130); Calcium 8.5 mg/dL (7.8-10.44); Carbon Dioxide 24 mmol/L (23-31); Chloride 107 mmol/L (98-107); Estimated GFR 94; Glucose 79 mg/dL (83-110); Potassium 3.5 mmol/L (3.5-5.1); Sodium 138 mmol/L (136-145)
[2023-01-17] MEDS: cefTRIAXone\\ROCEPHIN 1 GM in Sodium Chloride 0.9% 100 ML IVPB SCH (08:37)
[2023-01-17] MEDS: Azithromycin 500 MG in Sodium Chloride 0.9% 250 ML 250 ML IVPB SCH (23:48)
[2023-01-18 06:11] LABS: Legionella Urinary Ag Negative (Negative); Strep pneumo Urine Ag NEGATIVE (NEGATIVE)
[2023-01-18 08:27] LABS: Band 5 % (5-11); Hypochromia SLIGHT = 6-15 cells (100X) (0-5/hpf); Lymphocytes 14 % (21-51); MDiff Complete? YES; Mean Corpuscular HGB CONC 32.5 g/dL (32.0-36.0); Mean Corpuscular Hemoglobin 29.8 pg (27.0-31.0); Mean Corpuscular Volume 91.7 fl (78.0-98.0); Mean Platelet Volume 7.1 fL (7.4-10.4); Monocytes 4 % (0-10); Neutrophil 74 % (42-75); Platelet Count 243 10x3/uL (130-400); Platelet Morphology Comment Appears Adequate; RBC Distribution Width 14.8 % (11.5-14.5); Reactive Lymphocytes 3 % (0-10); Red Blood Cell (RBC) Count 4.35 mill/uL (4.70-6.10); White Blood Cell (WBC) Count 15.1 10x3/uL (4.8-10.8)
[2023-01-18 08:29] LABS: ALT (SGPT) 10 U/L (8-55); AST (SGOT) 24 U/L (5-34); Alkaline Phosphatase 71 U/L (40-110); Anion Gap 19 mmol/L (10-20); BUN (Urea Nitrogen) 21 mg/dL (8.4-25.7); Bilirubin, Direct 0.5 mg/dL (0.1-0.3); Bilirubin, Total 0.8 mg/dL (0.2-1.2); Calc. Creatinine Clearance 78 mL/min (70-130); Calcium 8.8 mg/dL (7.8-10.44); Carbon Dioxide 19 mmol/L (23-31); Chloride 108 mmol/L (98-107); Estimated GFR 91; Glucose 56 mg/dL (83-110); Protein, Total 6.2 g/dL (5.8-8.1); Sodium 143 mmol/L (136-145)
[2023-01-18] MEDS ORDERED: Potassium Chloride 10 MEQ in Premix Bag 1 BAG IVPB SCH (09:00)
[2023-01-18] MEDS: cefTRIAXone\\ROCEPHIN 1 GM in Sodium Chloride 0.9% 100 ML IVPB SCH (09:44)
[2023-01-18] MEDS ORDERED: Albuterol 200 PUFF (6.7GM INHALER) INH PRN (15:48)
[2023-01-18] MEDS: Dronedarone HCl 400 MG TAB PO SCH (17:30)
[2023-01-18] MEDS: Acetaminophen 325 MG TAB PO PRN (17:33)
[2023-01-18] MEDS: Benzonatate 100 MG CAP PO PRN (17:33)
[2023-01-18] MEDS: Melatonin 3 MG TAB PO SCH (19:50)
[2023-01-18] MEDS: Rosuvastatin 20 MG TAB PO SCH (19:50)
[2023-01-18] MEDS: Azithromycin 500 MG in Sodium Chloride 0.9% 250 ML 250 ML IVPB SCH (23:23)
[2023-01-19 06:48] LABS: #Eosinphils 0.1 thou/uL (0.0-0.7); #Lymphocytes 1.2 thou/uL (1.20-3.40); #Monocytes 0.8 thou/uL (0.11-0.59); #Neutrophils 8.3 thou/uL (1.40-6.50); %Basophils 0.2 % (0.0-1.0); %Eosinophils 1.4 % (0.0-10.0); %Lymphocytes 11.7 % (21.0-51.0); %Neutrophils 78.8 % (42.0-75.0); Hemoglobin 12.7 g/dL (14.0-18.0); Mean Corpuscular HGB CONC 33.7 g/dL (32.0-36.0); Mean Corpuscular Hemoglobin 30.3 pg (27.0-31.0); Mean Platelet Volume 6.7 fL (7.4-10.4); Platelet Count 247 10x3/uL (130-400); RBC Distribution Width 14.5 % (11.5-14.5); Red Blood Cell (RBC) Count 4.19 mill/uL (4.70-6.10); White Blood Cell (WBC) Count 10.6 10x3/uL (4.8-10.8)
[2023-01-19 07:14] LABS: Anion Gap 13 mmol/L (10-20); BUN (Urea Nitrogen) 14 mg/dL (8.4-25.7); Calc. Creatinine Clearance 86 mL/min (70-130); Calcium 8.4 mg/dL (7.8-10.44); Carbon Dioxide 22 mmol/L (23-31); Chloride 107 mmol/L (98-107); Estimated GFR 94; Glucose 88 mg/dL (83-110); Potassium 3.9 mmol/L (3.5-5.1); Sodium 138 mmol/L (136-145)
[2023-01-19] MEDS: cefTRIAXone\\ROCEPHIN 1 GM in Sodium Chloride 0.9% 100 ML IVPB SCH (09:03)
[2023-01-19] MEDS: Saccharomyces boulardii 250 MG CAP PO SCH (09:04)
[2023-01-19] MEDS: DULoxetine 20 MG CAP PO SCH (09:04)
[2023-01-19] MEDS: Dronedarone HCl 400 MG TAB PO SCH ×2 (09:04→16:29)
[2023-01-19] MEDS: Ferrous Sulfate 325 MG TAB PO SCH ×3 (09:04→16:29)
[2023-01-19] MEDS: predniSONE 1 MG TAB PO SCH (09:04)
[2023-01-19] MEDS: Polyethylene Glycol OPTH DROP 15 ML BOT EA EYE SCH (09:07)
[2023-01-19] MEDS ORDERED: Furosemide 40 MG/4 ML VIAL SLOW IVP SCH (15:30)
[2023-01-19] MEDS: Rosuvastatin 20 MG TAB PO SCH (20:12)
[2023-01-19] MEDS: Acetaminophen 325 MG TAB PO PRN (20:12)
[2023-01-19] MEDS: Melatonin 3 MG TAB PO SCH (20:12)
[2023-01-19] MEDS: Azithromycin 500 MG in Sodium Chloride 0.9% 250 ML 250 ML IVPB SCH (23:37)
[2023-01-20 07:25] LABS: #Eosinphils 0.2 thou/uL (0.0-0.7); #Lymphocytes 1.6 thou/uL (1.20-3.40); #Monocytes 0.7 thou/uL (0.11-0.59); #Neutrophils 5.6 thou/uL (1.40-6.50); %Basophils 0.4 % (0.0-1.0); %Eosinophils 2.4 % (0.0-10.0); %Lymphocytes 19.6 % (21.0-51.0); %Monocytes 8.2 % (0.0-10.0); %Neutrophils 69.4 % (42.0-75.0); Mean Corpuscular HGB CONC 33.3 g/dL (32.0-36.0); Mean Corpuscular Hemoglobin 29.8 pg (27.0-31.0); Mean Corpuscular Volume 89.5 fl (78.0-98.0); Mean Platelet Volume 6.8 fL (7.4-10.4); Platelet Count 245 10x3/uL (130-400); RBC Distribution Width 14.4 % (11.5-14.5); Red Blood Cell (RBC) Count 4.36 mill/uL (4.70-6.10)
[2023-01-20 07:43] LABS: Anion Gap 10 mmol/L (10-20); BUN (Urea Nitrogen) 13 mg/dL (8.4-25.7); Calc. Creatinine Clearance 85 mL/min (70-130); Calcium 8.6 mg/dL (7.8-10.44); Carbon Dioxide 26 mmol/L (23-31); Chloride 105 mmol/L (98-107); Estimated GFR 93; Glucose 88 mg/dL (83-110); Potassium 3.6 mmol/L (3.5-5.1); Sodium 137 mmol/L (136-145)
[2023-01-20] MEDS ORDERED: Furosemide 40 MG/4 ML VIAL SLOW IVP SCH (09:00)
[2023-01-20] MEDS: DULoxetine 20 MG CAP PO SCH (09:31)
[2023-01-20] MEDS: Ferrous Sulfate 325 MG TAB PO SCH ×3 (09:31→17:38)
[2023-01-20] MEDS: Dronedarone HCl 400 MG TAB PO SCH ×2 (09:31→17:38)
[2023-01-20] MEDS: cefTRIAXone\\ROCEPHIN 1 GM in Sodium Chloride 0.9% 100 ML IVPB SCH (09:31)
[2023-01-20] MEDS: Saccharomyces boulardii 250 MG CAP PO SCH (09:31)
[2023-01-20] MEDS: Polyethylene Glycol OPTH DROP 15 ML BOT EA EYE SCH (09:32)
[2023-01-20] MEDS: predniSONE 1 MG TAB PO SCH (09:32)
[2023-01-20] MEDS ORDERED: predniSONE 20 MG TAB PO SCH (16:00)
[2023-01-20] MEDS: Rosuvastatin 20 MG TAB PO SCH (20:50)
[2023-01-20] MEDS: Melatonin 3 MG TAB PO SCH (20:50)
[2023-01-20] MEDS: Azithromycin 500 MG in Sodium Chloride 0.9% 250 ML 250 ML IVPB SCH (23:28)
[2023-01-21] MEDS ORDERED: Alendronate Sodium 70 mg Tablet PO SCH (06:00)
[2023-01-21 07:29] LABS: #Eosinphils 0.1 thou/uL (0.0-0.7); #Lymphocytes 1.6 thou/uL (1.20-3.40); #Monocytes 0.6 thou/uL (0.11-0.59); #Neutrophils 6.5 thou/uL (1.40-6.50); %Basophils 0.1 % (0.0-1.0); %Eosinophils 1.4 % (0.0-10.0); %Lymphocytes 18.4 % (21.0-51.0); %Monocytes 7.1 % (0.0-10.0); %Neutrophils 73.1 % (42.0-75.0); Hemoglobin 13.3 g/dL (14.0-18.0); Mean Corpuscular Hemoglobin 29.7 pg (27.0-31.0); Mean Corpuscular Volume 90.2 fl (78.0-98.0); Platelet Count 264 10x3/uL (130-400); RBC Distribution Width 14.4 % (11.5-14.5); Red Blood Cell (RBC) Count 4.47 mill/uL (4.70-6.10); White Blood Cell (WBC) Count 8.8 10x3/uL (4.8-10.8)
[2023-01-21 07:50] LABS: Anion Gap 16 mmol/L (10-20); BUN (Urea Nitrogen) 14 mg/dL (8.4-25.7); Calc. Creatinine Clearance 81 mL/min (70-130); Calcium 8.6 mg/dL (7.8-10.44); Carbon Dioxide 22 mmol/L (23-31); Chloride 105 mmol/L (98-107); Estimated GFR 92; Glucose 80 mg/dL (83-110); Magnesium 2.1 mg/dL (1.6-2.6); Potassium 3.6 mmol/L (3.5-5.1); Sodium 139 mmol/L (136-145)
[2023-01-21] MEDS ORDERED: predniSONE 5 MG TAB PO SCH (08:00)
[2023-01-21] MEDS: Dronedarone HCl 400 MG TAB PO SCH (09:02)
[2023-01-21] MEDS: Ferrous Sulfate 325 MG TAB PO SCH ×2 (09:02→11:12)
[2023-01-21] MEDS: Saccharomyces boulardii 250 MG CAP PO SCH (09:04)
[2023-01-21] MEDS: cefTRIAXone\\ROCEPHIN 1 GM in Sodium Chloride 0.9% 100 ML IVPB SCH (09:05)
[2023-01-21] MEDS: Polyethylene Glycol OPTH DROP 15 ML BOT EA EYE SCH (09:06)
[2023-01-21] MEDS: DULoxetine 20 MG CAP PO SCH (11:12)
[2023-01-21 12:15] VITALS: BP 113/73; TEMP 97.4
[2023-01-22] MEDS ORDERED: Amoxicillin/Potassium Clav 875 MG TAB PO SCH (09:00)
== END 2023-01-21 12:55 | DRG 193 ==
LOC: ERS 20:21 → ERHOLD 23:10 → T4-B 23:15
PROVIDERS: ADMIT Student in an Organized Health Care Education/Training Program; ATTEND Hospitalist
DX: J18.9 Pneumonia, unspecified organism (principal); G93.41 Metabolic encephalopathy; J96.01 Acute respiratory failure with hypoxia; Z66 Do not resuscitate; Z51.5 Encounter for palliative care; G30.9 Alzheimer's disease, unspecified; F02.80 Dementia in other diseases classified elsewhere, unspecified severity, without behavioral disturbance, psychotic disturbance, mood disturbance, and anxiety; I25.10 Atherosclerotic heart disease of native coronary artery without angina pectoris; Z20.822 Contact with and (suspected) exposure to COVID-19; I10 Essential (primary) hypertension; K21.9 Gastro-esophageal reflux disease without esophagitis; M06.9 Rheumatoid arthritis, unspecified; E87.70 Fluid overload, unspecified; I48.0 Paroxysmal atrial fibrillation; Z95.0 Presence of cardiac pacemaker; Z87.891 Personal history of nicotine dependence
CPT/HCPCS: 36415; 71045; 80048; 80053; 80076; 83036; 83690; 83735; 83880; 84443; 84484; 85025; 87040; 87081; 87449; 87899; 93005; 93306; J0456; J0696; J1650; J1940; J3480; J3490; J7050; J7512

== ENCOUNTER 2023-02-04 09:13 | Outpatient (CLI) | payer MEDICARE, MEDICAID | END 2023-02-04 09:14 | disposition home or self-care (01) | LOC: CT 09:13 | PROVIDERS: ATTEND Internal Medicine | DX: R91.8 Other nonspecific abnormal finding of lung field (principal); J18.9 Pneumonia, unspecified organism; J98.4 Other disorders of lung | CPT/HCPCS: 71250 ==

== ENCOUNTER 2023-03-28 10:25 | Observation (INO) | payer MEDICARE, MEDICAID ==
[2023-03-28 11:30] LABS: #Eosinphils 0.1 thou/uL (0.0-0.7); #Monocytes 0.8 thou/uL (0.11-0.59); #Neutrophils 6.9 thou/uL (1.40-6.50); %Basophils 0.3 % (0.0-1.0); %Eosinophils 1.1 % (0.0-10.0); %Lymphocytes 12.1 % (21.0-51.0); %Monocytes 8.7 % (0.0-10.0); %Neutrophils 77.5 % (42.0-75.0); Hemoglobin 13.6 g/dL (14.0-18.0); Mean Corpuscular HGB CONC 32.9 g/dL (32.0-36.0); Mean Corpuscular Hemoglobin 29.8 pg (27.0-31.0); Mean Corpuscular Volume 90.8 fl (78.0-98.0); Mean Platelet Volume 9.9 fL (7.4-10.4); Platelet Count 161 10x3/uL (130-400); RBC Distribution Width 14.8 % (11.5-14.5); Red Blood Cell (RBC) Count 4.56 mill/uL (4.70-6.10); White Blood Cell (WBC) Count 8.9 10x3/uL (4.8-10.8)
[2023-03-28 11:38] LABS: ALT (SGPT) 10 U/L (8-55); AST (SGOT) 17 U/L (5-34); Albumin 3.5 g/dL (3.4-4.8); Alkaline Phosphatase 67 U/L (40-110); Anion Gap 15 mmol/L (10-20); BUN (Urea Nitrogen) 20 mg/dL (8.4-25.7); Bilirubin, Total 0.6 mg/dL (0.2-1.2); Calc. Creatinine Clearance 0 mL/min (70-130); Carbon Dioxide 20 mmol/L (23-31); Chloride 108 mmol/L (98-107); Estimated GFR 92; Globulin 3.3 g/dL (2.4-3.5); Glucose 102 mg/dL (83-110); Potassium 4.1 mmol/L (3.5-5.1); Protein, Total 6.8 g/dL (5.8-8.1); Sodium 139 mmol/L (136-145)
[2023-03-28 12:49] LABS: CKMB 3.1 ng/mL (0-6.6)
[2023-03-28] MEDS ORDERED: Nitroglycerin 2% Ointment 1 INCH/1 GM Packet ONE (15:21)
[2023-03-28] MEDS ORDERED: Nitroglycerin 0.4 MG TAB (25 Tab Bottle) SL PRN (17:41)
[2023-03-28 18:43] VITALS: BMI 26.8
[2023-03-28 19:30] LABS: Troponin I 0.099 ng/mL (< 0.028)
[2023-03-28] MEDS: Senokot S 8.6-50 MG TAB PO SCH (20:10)
[2023-03-28] MEDS ORDERED: Rosuvastatin 20 MG TAB PO SCH (21:00)
[2023-03-28] MEDS ORDERED: traMADol HCl 50 MG TAB PO PRN (23:32)
[2023-03-28] MEDS ORDERED: traMADol HCl 50 MG TAB PO SCH (23:45)
[2023-03-29] MEDS ORDERED: guaiFENesin ER 600 MG TAB PO PRN (07:37)
[2023-03-29] MEDS ORDERED: Acetaminophen 325 MG TAB PO PRN (07:39)
[2023-03-29] MEDS ORDERED: Electrolyte Replacement Protocol 1 EACH FS SCH (07:45)
[2023-03-29] MEDS ORDERED: predniSONE 5 MG TAB PO SCH ×2 (08:00)
[2023-03-29 08:51] LABS: CKMB 3.7 ng/mL (0-6.6)
[2023-03-29] MEDS ORDERED: DULoxetine 20 MG CAP PO SCH (09:00)
[2023-03-29] MEDS ORDERED: Rosuvastatin 20 MG TAB PO SCH (09:00)
[2023-03-29] MEDS ORDERED: Amiodarone 200 MG TAB PO SCH (09:00)
[2023-03-29] MEDS ORDERED: Aspirin Chewable 81 MG TAB PO SCH (09:00)
[2023-03-29] MEDS: Senokot S 8.6-50 MG TAB PO SCH (10:15)
[2023-03-29 15:51] VITALS: BP 125/73; TEMP 98.3
== END 2023-03-29 17:22 ==
LOC: ERS 10:25 → ERHOLD 16:11 → 2NO 18:19
PROVIDERS: ADMIT Emergency Medicine; ATTEND Nurse Practitioner Family
DX: R07.89 Other chest pain (principal); I25.10 Atherosclerotic heart disease of native coronary artery without angina pectoris; I48.91 Unspecified atrial fibrillation; I10 Essential (primary) hypertension; K21.9 Gastro-esophageal reflux disease without esophagitis; M19.90 Unspecified osteoarthritis, unspecified site; M06.9 Rheumatoid arthritis, unspecified; G30.9 Alzheimer's disease, unspecified; F02.80 Dementia in other diseases classified elsewhere, unspecified severity, without behavioral disturbance, psychotic disturbance, mood disturbance, and anxiety; Z79.899 Other long term (current) drug therapy; Z95.0 Presence of cardiac pacemaker; Z87.891 Personal history of nicotine dependence; Z95.5 Presence of coronary angioplasty implant and graft; Z79.82 Long term (current) use of aspirin
CPT/HCPCS: 71045; 80053; 82553 ×2; 83880; 84484 ×4; 85025; 93005 ×2; 94760; 96372; 99285; G0378 ×3; 36415; 93010; J1650; J7512

== ENCOUNTER 2023-06-09 21:12 | Inpatient (IN) | payer MEDICARE, MEDICAID ==
[2023-06-09] MEDS ORDERED: Boostrix 0.5 ML (Tdap) VIAL (>/=7 yrs of age) ONE (21:35)
[2023-06-09] MEDS ORDERED: Ondansetron PF 4 MG/2 ML Vial ONE (21:50)
[2023-06-09] MEDS ORDERED: Morphine 4 MG/ML VIAL ONE (21:50)
[2023-06-09 22:24] LABS: #Eosinphils 0.1 thou/uL (0.0-0.7); #Monocytes 0.6 thou/uL (0.11-0.59); #Neutrophils 5.8 thou/uL (1.40-6.50); %Basophils 0.4 % (0.0-1.0); %Eosinophils 0.9 % (0.0-10.0); %Lymphocytes 15.3 % (21.0-51.0); %Monocytes 7.3 % (0.0-10.0); %Neutrophils 75.6 % (42.0-75.0); Hematocrit 40.3 % (42.0-52.0); Mean Corpuscular HGB CONC 32.3 g/dL (32.0-36.0); Mean Corpuscular Volume 89.8 fl (78.0-98.0); Mean Platelet Volume 9.5 fL (7.4-10.4); Platelet Count 162 10x3/uL (130-400); RBC Distribution Width 16.1 % (11.5-14.5); Red Blood Cell (RBC) Count 4.49 mill/uL (4.70-6.10); White Blood Cell (WBC) Count 7.7 10x3/uL (4.8-10.8)
[2023-06-09 22:39] LABS: Prothrombin Time 13.6 sec (12.0-14.7)
[2023-06-09 22:40] LABS: PTT 29.7 sec (22.9-36.1)
[2023-06-09 22:53] LABS: ALT (SGPT) 17 U/L (8-55); AST (SGOT) 19 U/L (5-34); Albumin 3.6 g/dL (3.4-4.8); Alkaline Phosphatase 85 U/L (40-110); Anion Gap 13 mmol/L (10-20); BUN (Urea Nitrogen) 20 mg/dL (8.4-25.7); Bilirubin, Total 0.9 mg/dL (0.2-1.2); Calc. Creatinine Clearance 0 mL/min (70-130); Calcium 8.9 mg/dL (7.8-10.44); Carbon Dioxide 27 mmol/L (23-31); Chloride 105 mmol/L (98-107); Estimated GFR 91; Globulin 2.6 g/dL (2.4-3.5); Glucose 107 mg/dL (83-110); Potassium 3.7 mmol/L (3.5-5.1); Protein, Total 6.2 g/dL (5.8-8.1); Sodium 141 mmol/L (136-145)
[2023-06-09 23:08] LABS: Bacteria/HPF None Seen HPF (None Seen); Bilirubin Negative (Negative); Blood, Urine Negative (Negative); CAUTI Indications for Culture Acute Hematuria; Clarity Clear (Clear); Glucose, Urine (Dipstick) Normal (Negative); Ketone, Urine Negative (Negative); Leukocyte Negative Leu/uL (Negative); Nitrite Negative (Negative); Protein, Urine (Dipstick) 10 mg/dL (Neg-Trace); RBC/HPF 0-3 HPF (0-3); Specific Gravity, Urine 1.023 (1.002-1.036); Squamous Epithelial None Seen HPF (0-3); WBC/HPF 0-3 HPF (0-3); pH, Urine 7.5 (5.0-9.0)
[2023-06-09 23:11] LABS: Urine Culture Reflex No No
[2023-06-09] MEDS ORDERED: TETANUS, DIPHTHERIA TOX,ADULT (TDVAX) 0.5 ML VIAL IM ONE (23:36)
[2023-06-09] MEDS ORDERED: Ipratropium/Albuterol 3 ML NEB NEB PRN (23:36)
[2023-06-09] MEDS ORDERED: Dextrose 5% in Water 1,000 ML IV PRN (23:36)
[2023-06-09] MEDS ORDERED: Ondansetron PF 4 MG/2 ML Vial IVP PRN (23:36)
[2023-06-09] MEDS ORDERED: Ondansetron ODT 4 MG TAB PO PRN (23:36)
[2023-06-09] MEDS ORDERED: Dextrose 50% Abboject 50 ML SYRINGE SLOW IVP PRN (23:36)
[2023-06-09] MEDS ORDERED: Morphine 2 MG/ML VIAL SLOW IVP PRN (23:36)
[2023-06-09] MEDS ORDERED: Glucagon 1 MG/ML KIT IM PRN (23:36)
[2023-06-09] MEDS ORDERED: Bacitracin Zinc Ointment 30 gm TUBE TOP SCH (23:45)
[2023-06-10] MEDS ORDERED: Sodium Chloride 0.9% 1,000 ML IV SCH (01:00)
[2023-06-10] MEDS ORDERED: Morphine 4 MG/ML VIAL ONE (01:25)
[2023-06-10 02:53] VITALS: BMI 24.0
[2023-06-10] MEDS: Acetaminophen 325 MG TAB PO SCH ×4 (05:27→17:41)
[2023-06-10] MEDS ORDERED: fentaNYL PF 100 MCG/2 ML SYRINGE ONE (10:21)
[2023-06-10] MEDS ORDERED: CEFAZOLIN 2 GM VIAL ONE (10:51)
[2023-06-10] MEDS ORDERED: Sodium Chloride 0.9% 100 ML ONE (10:51)
[2023-06-10] MEDS ORDERED: Ipratropium/Albuterol 3 ML NEB ONE (10:58)
[2023-06-10] MEDS ORDERED: Tranexamic Acid 1,000 MG/10 ML VIAL ONE (11:17)
[2023-06-10] MEDS ORDERED: Vancomycin HCl 500 MG VIAL ONE (11:17)
[2023-06-10] MEDS ORDERED: SUGAMMADEX SODIUM 200 MG/2 ML VIAL ONE (11:30)
[2023-06-10] MEDS ORDERED: Ondansetron PF 4 MG/2 ML Vial ONE (11:43)
[2023-06-10] MEDS ORDERED: PROPOFOL 200 MG/20 ML VIAL ONE (11:43)
[2023-06-10] MEDS ORDERED: Dexamethasone 20 MG/5 ML VIAL ONE (11:43)
[2023-06-10] MEDS ORDERED: Rocuronium Bromide 10 MG/ML (10ML VIAL) ONE (11:43)
[2023-06-10] MEDS ORDERED: CEFAZOLIN 2 GM in Sodium Chloride 0.9% 100 ML IVPB SCH (13:00)
[2023-06-10] MEDS ORDERED: fentaNYL 50 mcg/mL 1 mL Vial ONE ×3 (13:25→13:51)
[2023-06-10] MEDS ORDERED: Promethazine HCl 25 MG/ML VIAL IM/IV PRN (14:15)
[2023-06-10] MEDS ORDERED: Ondansetron HCl/PF 4 MG/2 ML Vial IVP PRN (14:15)
[2023-06-10] MEDS: Acetaminophen/Codeine 30-300mg Tablet PO PRN (18:16)
[2023-06-10] MEDS: CEFAZOLIN 2 GM in Sodium Chloride 0.9% 100 ML IVPB SCH (20:01)
[2023-06-11] MEDS: Acetaminophen 325 MG TAB PO SCH ×2 (00:56→05:38)
[2023-06-11] MEDS: CEFAZOLIN 2 GM in Sodium Chloride 0.9% 100 ML IVPB SCH ×2 (04:32→12:28)
[2023-06-11] MEDS ORDERED: Morphine 2 MG/ML VIAL SLOW IVP PRN (06:00)
[2023-06-11 06:32] LABS: #Monocytes 0.7 thou/uL (0.11-0.59); %Basophils 0.3 % (0.0-1.0); %Eosinophils 0.1 % (0.0-10.0); %Lymphocytes 7.8 % (21.0-51.0); %Monocytes 6.2 % (0.0-10.0); %Neutrophils 85.3 % (42.0-75.0); Hematocrit 37.4 % (42.0-52.0); Hemoglobin 12.1 g/dL (14.0-18.0); Mean Corpuscular HGB CONC 32.4 g/dL (32.0-36.0); Mean Corpuscular Hemoglobin 29.5 pg (27.0-31.0); Mean Corpuscular Volume 91.2 fl (78.0-98.0); Mean Platelet Volume 10.3 fL (7.4-10.4); Platelet Count 120 10x3/uL (130-400); RBC Distribution Width 16.4 % (11.5-14.5); White Blood Cell (WBC) Count 11.7 10x3/uL (4.8-10.8)
[2023-06-11 07:33] LABS: Calcium 8.9 mg/dL (7.8-10.44); Chloride 108 mmol/L (98-107); Potassium 4.2 mmol/L (3.5-5.1); Sodium 139 mmol/L (136-145)
[2023-06-11 07:34] LABS: Glucose 92 mg/dL (83-110)
[2023-06-11 07:35] LABS: Anion Gap 16 mmol/L (10-20); Carbon Dioxide 19 mmol/L (23-31)
[2023-06-11 07:37] LABS: Calc. Creatinine Clearance 77 mL/min (70-130); Estimated GFR 89
[2023-06-11 07:38] LABS: BUN (Urea Nitrogen) 15 mg/dL (8.4-25.7)
[2023-06-11] MEDS ORDERED: guaiFENesin ER 600 MG TAB PO PRN ×2 (09:15→09:49)
[2023-06-11] MEDS ORDERED: ACETAMINOPHEN 650 MG PO PRN (09:15)
[2023-06-11] MEDS ORDERED: Benzonatate 100 MG CAP PO PRN (09:15)
[2023-06-11] MEDS ORDERED: Acetaminophen 325 MG TAB PO PRN (09:55)
[2023-06-11] MEDS: Acetaminophen/Codeine 30-300mg Tablet PO PRN (09:58)
[2023-06-11] MEDS: Ferrous Sulfate 325 MG TAB PO SCH ×2 (14:19→20:00)
[2023-06-11] MEDS ORDERED: Non-Formulary Item 1 EACH (Ferrous Sulfate [Ferrous Sulfate] 325 MG Tab) PO SCH (15:00)
[2023-06-11] MEDS: Acetaminophen 500 MG TAB PO SCH (19:59)
[2023-06-11] MEDS: Senokot S 8.6-50 MG TAB PO SCH (20:00)
[2023-06-11] MEDS: traMADol HCl 50 MG TAB PO SCH (20:00)
[2023-06-11] MEDS ORDERED: Melatonin 3 MG TAB PO SCH (21:00)
[2023-06-12 06:14] LABS: #Basophils 0.1 thou/uL (0.0-0.2); #Eosinphils 0.3 thou/uL (0.0-0.7); #Neutrophils 8.2 thou/uL (1.40-6.50); %Basophils 0.4 % (0.0-1.0); %Eosinophils 2.3 % (0.0-10.0); %Lymphocytes 14.3 % (21.0-51.0); %Monocytes 9.3 % (0.0-10.0); %Neutrophils 73.3 % (42.0-75.0); Hematocrit 36.8 % (42.0-52.0); Hemoglobin 11.9 g/dL (14.0-18.0); Mean Corpuscular HGB CONC 32.3 g/dL (32.0-36.0); Mean Corpuscular Hemoglobin 29.6 pg (27.0-31.0); Mean Corpuscular Volume 91.5 fl (78.0-98.0); Mean Platelet Volume 10.4 fL (7.4-10.4); Platelet Count 114 10x3/uL (130-400); RBC Distribution Width 16.6 % (11.5-14.5); Red Blood Cell (RBC) Count 4.02 mill/uL (4.70-6.10); White Blood Cell (WBC) Count 11.1 10x3/uL (4.8-10.8)
[2023-06-12] MEDS ORDERED: predniSONE 5 MG TAB PO SCH (08:00)
[2023-06-12] MEDS ORDERED: Cyanocobalamin (Vitamin B-12) 1,000 MCG TAB PO SCH (09:00)
[2023-06-12] MEDS ORDERED: Amiodarone 200 MG TAB PO SCH ×2 (09:00)
[2023-06-12] MEDS ORDERED: Aspirin 325 mg Enteric Coated Tablet PO SCH ×2 (09:00)
[2023-06-12] MEDS ORDERED: Rosuvastatin 20 MG TAB PO SCH ×2 (09:00)
[2023-06-12] MEDS ORDERED: Multivitamin W/ Minerals 1 TAB PO SCH (09:00)
[2023-06-12] MEDS ORDERED: MAGNESIUM GLUCONATE 500 MG PO SCH (09:00)
[2023-06-12] MEDS ORDERED: Magnesium Oxide 250 MG TAB PO SCH (09:00)
[2023-06-12] MEDS ORDERED: Aspirin 81 mg Enteric Coated Tablet PO SCH (09:00)
[2023-06-12] MEDS ORDERED: Non-Formulary Item 1 EACH (Omega-3s/Dha/Epa/Fish Oil [Omega-3 Fish Oil 1,200 Mg Sfgl] 1 E PO SCH (09:00)
[2023-06-12] MEDS ORDERED: Non-Formulary Item 1 EACH (Omeprazole [Omeprazole] 20 MG Capsule.Dr) PO SCH (09:00)
[2023-06-12] MEDS ORDERED: Artificial Tear Sol 15 ML BOT EA EYE SCH (09:00)
[2023-06-12] MEDS ORDERED: Ascorbic Acid 500 mg Chewable Tablet PO SCH (09:00)
[2023-06-12] MEDS ORDERED: POLYETHYLENE GLYCOL 400 EA EYE SCH (09:00)
[2023-06-12] MEDS ORDERED: Leflunomide 10 mg Tablet PO SCH (09:00)
[2023-06-12] MEDS ORDERED: Zinc Sulfate 220 MG CAP PO SCH (09:00)
[2023-06-12] MEDS ORDERED: Fish Oil 1,000 MG CAP PO SCH (09:00)
[2023-06-12] MEDS ORDERED: DULoxetine 20 MG CAP PO SCH (09:00)
[2023-06-12] MEDS ORDERED: Non-Formulary Item 1 EACH (Leflunomide [Arava] 20 MG Tab) PO SCH (09:00)
[2023-06-12] MEDS ORDERED: PROPYLENE GLYCOL EA EYE SCH (09:00)
[2023-06-12] MEDS: traMADol HCl 50 MG TAB PO SCH (09:55)
[2023-06-12] MEDS: Ferrous Sulfate 325 MG TAB PO SCH (09:56)
[2023-06-12] MEDS: Senokot S 8.6-50 MG TAB PO SCH (09:57)
[2023-06-12] MEDS: Acetaminophen 500 MG TAB PO SCH (09:57)
[2023-06-12 12:57] VITALS: BP 135/75; TEMP 98
[2023-06-15] MEDS ORDERED: Ergocalciferol 1.25 MG(50,000 UNITS) CAP PO SCH (09:00)
[2023-06-17] MEDS ORDERED: Alendronate Sodium 70 mg Tablet PO SCH (06:00)
[2023-06-18] MEDS ORDERED: Ergocalciferol 1.25 MG(50,000 UNITS) CAP PO SCH (09:00)
== END 2023-06-12 13:45 | DRG 522 ==
LOC: ERS 21:12 → SJJU 22:56
PROVIDERS: ADMIT Surgery; ATTEND Surgery
PROC: 0SRR0J9 Replacement of Right Hip Joint, Femoral Surface with Synthetic Substitute, Cemented, Open Approach (ICD-10-PCS; principal; 2023-06-10)
DX: S72.031A Displaced midcervical fracture of right femur, initial encounter for closed fracture (principal); F03.90 Unspecified dementia, unspecified severity, without behavioral disturbance, psychotic disturbance, mood disturbance, and anxiety; I10 Essential (primary) hypertension; I25.10 Atherosclerotic heart disease of native coronary artery without angina pectoris; I48.91 Unspecified atrial fibrillation; K21.9 Gastro-esophageal reflux disease without esophagitis; M06.9 Rheumatoid arthritis, unspecified; M81.0 Age-related osteoporosis without current pathological fracture; S41.112A Laceration without foreign body of left upper arm, initial encounter; S61.411A Laceration without foreign body of right hand, initial encounter; W19.XXXA Unspecified fall, initial encounter; Z87.891 Personal history of nicotine dependence; Z95.0 Presence of cardiac pacemaker; Z95.5 Presence of coronary angioplasty implant and graft; Z98.890 Other specified postprocedural states; Y92.129 Unspecified place in nursing home as the place of occurrence of the external cause
CPT/HCPCS: 36415; 71045; 72170; 80048; 80053; 81001; 85025; 85610; 85730; 90471; 90715; 93005; 94760; 96374; 96375; 96376; 97139; C1776; G0390; J1100; J2270; J2272; J2405; J2704; J3010; J3370; J3490; J7050; J7512; J7620

== ENCOUNTER 2023-11-23 11:10 | Inpatient (IN) | payer MEDICARE, MEDICAID ==
[2023-11-23] MEDS ORDERED: Pantoprazole 40 MG VIAL ONE (11:59)
[2023-11-23] MEDS ORDERED: Ondansetron PF 4 MG/2 ML Vial ONE (11:59)
[2023-11-23 12:03] LABS: #Eosinphils 0.1 thou/uL (0.0-0.7); #Monocytes 0.6 thou/uL (0.11-0.59); #Neutrophils 7.8 thou/uL (1.40-6.50); %Basophils 0.4 % (0.0-1.0); %Eosinophils 0.6 % (0.0-10.0); %Lymphocytes 10.3 % (21.0-51.0); %Monocytes 6.5 % (0.0-10.0); %Neutrophils 81.8 % (42.0-75.0); Hematocrit 40.9 % (42.0-52.0); Hemoglobin 13.3 g/dL (14.0-18.0); Mean Corpuscular HGB CONC 32.5 g/dL (32.0-36.0); Mean Corpuscular Hemoglobin 31.1 pg (27.0-31.0); Mean Corpuscular Volume 95.8 fl (78.0-98.0); Mean Platelet Volume 9.3 fL (7.4-10.4); Platelet Count 216 10x3/uL (130-400); Red Blood Cell (RBC) Count 4.27 mill/uL (4.70-6.10); White Blood Cell (WBC) Count 9.5 10x3/uL (4.8-10.8)
[2023-11-23 12:20] LABS: ALT (SGPT) 14 U/L (8-55); AST (SGOT) 17 U/L (5-34); Albumin 3.7 g/dL (3.4-4.8); Alkaline Phosphatase 83 U/L (40-110); Anion Gap 15 mmol/L (10-20); BUN (Urea Nitrogen) 20 mg/dL (8.4-25.7); Calc. Creatinine Clearance 0 mL/min (70-130); Calcium 9.2 mg/dL (7.8-10.44); Carbon Dioxide 24 mmol/L (23-31); Chloride 104 mmol/L (98-107); Estimated GFR 85; Globulin 3.1 g/dL (2.4-3.5); Glucose 119 mg/dL (83-110); Lipase 17 U/L (8-78); Potassium 3.3 mmol/L (3.5-5.1); Protein, Total 6.8 g/dL (5.8-8.1); Sodium 140 mmol/L (136-145)
[2023-11-23 12:44] LABS: Troponin I 0.013 ng/mL (< 0.028)
[2023-11-23] MEDS ORDERED: Morphine 2 MG/ML VIAL SLOW IVP PRN (14:30)
[2023-11-23] MEDS ORDERED: hydrALAZINE 20 MG/ML VIAL SLOW IVP PRN (14:30)
[2023-11-23] MEDS ORDERED: Glucagon 1 MG/ML KIT IM PRN (14:30)
[2023-11-23] MEDS ORDERED: Ipratropium/Albuterol 3 ML NEB NEB PRN (14:30)
[2023-11-23] MEDS ORDERED: Ondansetron PF 4 MG/2 ML Vial IVP PRN (14:30)
[2023-11-23] MEDS ORDERED: Acetaminophen 325 MG TAB PO PRN (14:30)
[2023-11-23] MEDS ORDERED: Dextrose 5% in Water 1,000 ML IV PRN (14:30)
[2023-11-23] MEDS ORDERED: Promethazine HCl 25 MG/ML VIAL IM PRN (14:30)
[2023-11-23] MEDS ORDERED: Dextrose 50% Abboject 50 ML SYRINGE SLOW IVP PRN (14:30)
[2023-11-23] MEDS ORDERED: HYDROcodone/Acetaminophen 10/325 mg Tablet PO PRN (14:30)
[2023-11-23] MEDS ORDERED: Piperacillin/Tazobactam 4.5 GM VIAL ONE (14:34)
[2023-11-23] MEDS ORDERED: Sodium Chloride 0.9% 100 ML ONE (14:34)
[2023-11-23] MEDS ORDERED: Acetaminophen/Codeine 30-300mg Tablet PO PRN (14:37)
[2023-11-23] MEDS ORDERED: Piperacillin/Tazobactam 3.375 GM in Sodium Chloride 0.9% 100 ML IVPB SCH (16:00)
[2023-11-23 17:02] VITALS: BMI 25.5
[2023-11-23] MEDS: Piperacillin/Tazobactam 3.375 GM in Sodium Chloride 0.9% 100 ML IVPB SCH ×2 (17:13→17:32)
[2023-11-23] MEDS: Potassium Chloride 20 MEQ TAB PO SCH (17:32)
[2023-11-23] MEDS: Melatonin 3 MG TAB PO SCH (20:49)
[2023-11-23] MEDS: Ferrous Sulfate 325 MG TAB PO SCH (20:49)
[2023-11-24 05:10] LABS: #Basophils 0.1 thou/uL (0.0-0.2); #Eosinphils 0.1 thou/uL (0.0-0.7); #Monocytes 0.7 thou/uL (0.11-0.59); #Neutrophils 6.3 thou/uL (1.40-6.50); %Basophils 0.6 % (0.0-1.0); %Eosinophils 1.3 % (0.0-10.0); %Lymphocytes 16.4 % (21.0-51.0); %Monocytes 8.3 % (0.0-10.0); %Neutrophils 72.7 % (42.0-75.0); Hematocrit 34.4 % (42.0-52.0); Mean Corpuscular Hemoglobin 30.6 pg (27.0-31.0); Mean Corpuscular Volume 95.8 fl (78.0-98.0); Mean Platelet Volume 9.4 fL (7.4-10.4); Platelet Count 220 10x3/uL (130-400); RBC Distribution Width 15.2 % (11.5-14.5); Red Blood Cell (RBC) Count 3.59 mill/uL (4.70-6.10); White Blood Cell (WBC) Count 8.6 10x3/uL (4.8-10.8)
[2023-11-24 05:42] LABS: Anion Gap 12 mmol/L (10-20); BUN (Urea Nitrogen) 15 mg/dL (8.4-25.7); Calc. Creatinine Clearance 80 mL/min (70-130); Calcium 8.4 mg/dL (7.8-10.44); Carbon Dioxide 23 mmol/L (23-31); Chloride 108 mmol/L (98-107); Estimated GFR 89; Glucose 72 mg/dL (83-110); Sodium 139 mmol/L (136-145)
[2023-11-24] MEDS: Ferrous Sulfate 325 MG TAB PO SCH (09:57)
[2023-11-24] MEDS: Rosuvastatin 20 MG TAB PO SCH (09:57)
[2023-11-24] MEDS: Famotidine 20 MG TAB PO SCH (09:58)
[2023-11-24] MEDS: Leflunomide 10 mg Tablet PO SCH (09:58)
[2023-11-24] MEDS: Furosemide 40 MG TAB PO SCH (09:58)
[2023-11-24] MEDS: Amiodarone 200 MG TAB PO SCH (09:58)
[2023-11-24] MEDS: DULoxetine 20 MG CAP PO SCH (09:58)
[2023-11-24] MEDS: Famotidine/PF 20 mg/2ml Vial SLOW IVP SCH (09:59)
[2023-11-24] MEDS ORDERED: Piperacillin/Tazobactam 3.375 GM in Sodium Chloride 0.9% 100 ML IVPB SCH (19:00)
[2023-11-25] MEDS: Acetaminophen 500 MG TAB PO PRN (20:37)
[2023-11-25] MEDS: Amoxicillin/Potassium Clav 875 MG TAB PO SCH (20:37)
[2023-11-25] MEDS: FLU VACC QS2023(65UP)/MF59C/PF 60 MCG/0.5 ML SYRINGE IM ONE (23:21)
[2023-11-26 08:19] VITALS: BP 128/77; TEMP 98.3
== END 2023-11-26 15:54 | DRG 373 ==
LOC: ERS 11:10 → T4-A 14:19
PROVIDERS: ADMIT Student in an Organized Health Care Education/Training Program; ATTEND Student in an Organized Health Care Education/Training Program
DX: K35.33 Acute appendicitis with perforation, localized peritonitis, and gangrene, with abscess (principal); I10 Essential (primary) hypertension; E78.5 Hyperlipidemia, unspecified; F03.90 Unspecified dementia, unspecified severity, without behavioral disturbance, psychotic disturbance, mood disturbance, and anxiety; I48.91 Unspecified atrial fibrillation; I25.10 Atherosclerotic heart disease of native coronary artery without angina pectoris; K21.9 Gastro-esophageal reflux disease without esophagitis; M81.0 Age-related osteoporosis without current pathological fracture; Z95.0 Presence of cardiac pacemaker; Z95.9 Presence of cardiac and vascular implant and graft, unspecified; Z87.891 Personal history of nicotine dependence
CPT/HCPCS: 36415; 71045; 74177; 80048; 80053; 83690; 84484; 85025; 86850; 86900; 86901; 93005; 96374; 96375; C9113; J2405; J2543; J3490; S0028